=== PATIENT | female | born 1960 | race Caucasian/White ===

== ENCOUNTER 2019-03-07 10:39 | Emergency (ER) | payer MEDICAID, OTHER ==
[2019-03-07] MEDS ORDERED: Naproxen TAB* 250 MG PO ONE ×2 (12:20)
--- NOTE | 2019-03-07 12:48 | ED ---
Lower Extremity - HPI Summary HPI Summary: This patient is a 59-year-old female presenting to the ED with chronic right hip pain. Patient states the hip continues to give out on her frequently and is endorsing pain to the right lateral portion of the hip as well as sciatic pain. She states this been present times several months to possibly years, however but has been worsening. She states she is unable to ambulate without assistance. She does not have a walker, cane or crutches. She states she does not have health insurance and has been unable to follow-up with an orthopedic physician. 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 She has not been taking any over-the- counter medications for relief. Symptoms are described as an aching, worse with ambulation and better with rest. Symptoms are not worse or better a specific time of day and not worse or better with medications. She is not used heat or ice for relief. - History of Current Complaint Chief Complaint: EDHipPelvisInjury Stated Complaint: HIP PAIN Time Seen by Provider: 03/07/19 11:18 Hx Obtained From: Patient Mechanism Of Injury: Other - no known trauma Onset of Pain: Hours Onset/Duration: Hours Severity Initially: Mild Severity Currently: Mild Pain Intensity: 9 Pain Scale Used: 0-10 Numeric Timing: Constant Location: Is Discrete @ - right lateral hip and sciatic area Associated Signs And Symptoms: Negative: Swelling, Redness, Bruising Aggravating Factor(s): Standing, Ambulation Alleviating Factor(s): Rest Able to Bear Weight: No - Risk Factors Gout Risk Factors: Negative DVT Risk Factors: Negative Septic Arthritis Risk Factor: Negative - Allergies/Home Medications Allergies/Adverse Reactions: Allergies Allergy/AdvReac Type Severity Reaction Status Date / Time No Known Allergies Allergy Verified 03/07/19 10:49 PMH/Surg Hx/FS Hx/Imm Hx Previously Healthy: Yes - Immunization History Hx Pertussis Vaccination: No Immunizations Up to Date: Yes Infectious Disease History: No Infectious Disease History: Denies: Traveled Outside the US in Last 30 Days - Social History Occupation: Unemployed Lives: Alone Alcohol Use: None Hx Substance Use: No Substance Use Type: Reports: None Hx Tobacco Use: No Smoking Status (MU): Never Smoked Tobacco Review of Systems Constitutional: Negative Negative: Fever, Chills, Fatigue, Skin Diaphoresis Negative: Epistaxis, Dental Pain Negative: Palpitations, Chest Pain Genitourinary: Negative Positive: no symptoms reported, see HPI Positive: Arthralgia - right lateral hip pain and R sciatic pain - worse with ambulation. Negative: Myalgia Skin: Negative Neurological: Negative All Other Systems Reviewed And Are Negative: Yes Physical Exam Triage Information Reviewed: Yes Vital Signs On Initial Exam: Initial Vitals Temp Pulse Resp BP Pulse Ox 98.1 F 79 18 154/98 96 03/07/19 10:40 03/07/19 10:40 03/07/19 10:40 03/07/19 10:40 03/07/19 10:40 Vital Signs Reviewed: Yes Appearance: Positive: Well-Appearing, Well-Nourished Skin: Positive: Warm, Skin Color Reflects Adequate Perfusion Head/Face: Positive: Normal Head/Face Inspection Eyes: Positive: EOMI, LISA, Conjunctiva Clear Neck: Positive: Supple, No Lymphadenopathy Respiratory/Lung Sounds: Positive: Clear to Auscultation, Breath Sounds Present Cardiovascular: Positive: Pulses are Symmetrical in both Upper and Lower Extremities Musculoskeletal: Positive: Strength/ROM Intact - right lateral hip pain and R sciatic pain - worse with ambulatio Neurological: Positive: Sensory/Motor Intact, Alert, Oriented to Person Place, Time Psychiatric: Positive: Normal, Affect/Mood Appropriate Procedures - Sedation Patient Received Moderate/Deep Sedation with Procedure: No Diagnostics - Vital Signs Vital Signs Temp Pulse Resp BP Pulse Ox 03/07/19 10:40 98.1 F 79 18 154/98 96 - Laboratory Lab Statement: Any lab studies that have been ordered have been reviewed, and results considered in the medical decision making process. Lower Extremity Course/Dx - Course Course Of Treatment: During this course of treatment, the patient is evaluated for right-sided hip pain. She is also endorsing pain to the sciatic area. Patient continues to be ambulatory, however with discomfort. Pain is worse to the right sciatic nerve as well as to the right lateral hip. She states intermittently she will have pain to the groin. Patient is ambulatory on arrival, however she is limping. Flexion and extension without discomfort. Abduction and abduction without discomfort. Hip x-ray obtained which shows no acute findings. Discussed with the patient she will be given a prescription for a walker with a seat and she will follow-up with her orthopedic physician when she obtains health insurance/Medicare. She is given naproxen as prescription and will follow up as soon as possible. - Diagnoses Differential Diagnosis/HQI/PQRI: Positive: Other - chornic hip pain, sciatica Provider Diagnoses: Hip pain Discharge ED - Sign-Out/Discharge Documenting (check all that apply): Patient Departure - Discharge Plan Condition: Stable Disposition: HOME Prescriptions: Naproxen TAB* [Naprosyn 250 mg TAB*] 500 mg PO Q8H PRN #12 tab MDD 3 PRN Reason: Pain - Mild Patient Education Materials: Hip Pain (ED) Referrals: Dori Cruz MD [Medical Doctor] - No Primary Care Phys,NOPCP [Primary Care Provider] - Additional Instructions: Naproxen up to 2-3 times daily as needed for hip pain Continue your physical therapy Please follow-up as soon as possible to orthopedic physician Continue working on your health insurance/Medicare/Medicaid Heat to the area may help - Billing Disposition and Condition Condition: STABLE Disposition: Home - Attestation Statements Provider Attestation: pt seen by midlevel provider independently, based on their assessment, it was not necessary to present the case to me but I was available for consultation. I did not form a physician-patient relationship with the patient. The chart however, has been reviewed. am signing this note strictly in an administrative capacity.
[2019-03-07 13:21] VITALS: BP 129/99
== END 2019-03-07 13:20 | disposition home or self-care (01) ==
LOC: ED 10:39
DX: M25.551 Pain in right hip (principal); M54.31 Sciatica, right side; M16.0 Bilateral primary osteoarthritis of hip
CPT/HCPCS: 99282; A9270-GY

== ENCOUNTER 2019-07-31 07:57 | Inpatient (IN) | payer OTHER ==
[2019-07-31] MEDS ORDERED: Ondansetron INJ* 2 MG/ML VIAL IV ONE (08:17)
[2019-07-31] MEDS ORDERED: NS 0.9% 1000 ML** 1,000 ML IV ONE (08:17)
--- NOTE | 2019-07-31 08:18 | ED ---
Complex/Multi-Sys Presentation - HPI Summary HPI Summary: Pt. is a 59 y.o female who presents to the ER for vomiting and throat discomfort that started last night. Past hx of HTN. Pt. states she started to feel unwell last night and then started to vomiting. Pt. notes after a few episodes of vomiting she started feel like something was stuck in her throat. She notes her voice feels hoarse. Pt. notes her grandson she lives with has strep throat. Pt. otherwise denies cp, sob, diarrhea. Sxs are moderate in severity. no current modifying factors. - History Of Current Complaint Chief Complaint: EDForeignBodyEsophag Time Seen by Provider: 07/31/19 08:03 - Allergies/Home Medications Allergies/Adverse Reactions: Allergies Allergy/AdvReac Type Severity Reaction Status Date / Time Iodinated Contrast Media Allergy Anaphylatic Verified 07/31/19 08:22 Shock shellfish derived Allergy Anaphylatic Verified 07/31/19 08:22 Shock Home Medications: Home Medications Bupropion XL* [Wellbutrin XL *] 150 mg PO DAILY 07/31/19 [History Confirmed ] Gabapentin CAP(*) [Neurontin 100 mg CAP(*)] 300 mg PO BEDTIME 07/31/19 [History Confirmed 07/31/19] Lisinopril TAB* [Prinivil TAB*] 10 mg PO DAILY 07/31/19 [History Confirmed 07/31] Melatonin (NF) 10 mg PO BEDTIME 07/31/19 [History Confirmed 07/31/19] Metoprolol Succinate XL TAB* [Toprol XL TAB*] 50 mg PO DAILY 07/31/19 [History Confirmed 07/31/19] Milk Thistle 150 mg PO DAILY 07/31/19 [History Confirmed 07/31/19] Ondansetron TAB* [Zofran 4 MG Tab*] 4 mg PO Q8H PRN 07/31/19 [History Confirmed 07/31/19] traZODone TAB* [Desyrel TAB*] 100 mg PO BEDTIME 07/31/19 [History Confirmed ] PMH/Surg Hx/FS Hx/Imm Hx Previously Healthy: Yes Infectious Disease History: No Infectious Disease History: Denies: Traveled Outside the US in Last 30 Days - Family History Known Family History: Positive: Non-Contributory - Social History Occupation: Unemployed Lives: With Family Alcohol Use: None Hx Substance Use: No Substance Use Type: Reports: None Hx Tobacco Use: No Smoking Status (MU): Never Smoked Tobacco Review of Systems - ROS Summary Review of Systems Summary: Bupropion XL* [Wellbutrin XL *] 150 mg PO DAILY 07/31/19 [History Confirmed ] Gabapentin CAP(*) [Neurontin 100 mg CAP(*)] 300 mg PO BEDTIME 07/31/19 [History Confirmed 07/31/19] Lisinopril TAB* [Prinivil TAB*] 10 mg PO DAILY 07/31/19 [History Confirmed 07/31] Melatonin (NF) 10 mg PO BEDTIME 07/31/19 [History Confirmed 07/31/19] Metoprolol Succinate XL TAB* [Toprol XL TAB*] 50 mg PO DAILY 07/31/19 [History Confirmed 07/31/19] Milk Thistle 150 mg PO DAILY 07/31/19 [History Confirmed 07/31/19] Ondansetron TAB* [Zofran 4 MG Tab*] 4 mg PO Q8H PRN 07/31/19 [History Confirmed 07/31/19] traZODone TAB* [Desyrel TAB*] 100 mg PO BEDTIME 07/31/19 [History Confirmed ] Positive: Chills Eyes: Negative ENT: Other - Difficulty swallowing. Cardiovascular: Negative Negative: Palpitations, Chest Pain Respiratory: Negative Negative: Shortness Of Breath, Cough Positive: Vomiting, Nausea, Other - constipation. Negative: Abdominal Pain, Diarrhea Genitourinary: Negative Musculoskeletal: Negative Neurological/Mental Status: Negative All Other Systems Reviewed And Are Negative: Yes Physical Exam Triage Information Reviewed: Yes Vital Signs On Initial Exam: Initial Vitals Temp Pulse Resp BP Pulse Ox 98.1 F 103 17 179/134 95 07/31/19 08:00 07/31/19 08:00 07/31/19 08:00 07/31/19 08:00 07/31/19 08:00 Vital Signs Reviewed: Yes Appearance: Positive: Well-Appearing - Pt. sitting up in bed in NAD. Skin: Positive: Warm, Dry Head/Face: Positive: Normal Head/Face Inspection Eyes: Positive: Normal, EOMI, LISA, Conjunctiva Clear ENT: Positive: Pharynx normal, Hoarse voice. Negative: Tonsillar swelling, Tonsillar exudate, Trismus, Muffled voice, Dental tenderness Neck: Positive: Supple, Nontender. Negative: Nuchal Rigidity Respiratory/Lung Sounds: Positive: Clear to Auscultation, Breath Sounds Present. Negative: Rales, Rhonchi, Stridor Cardiovascular: Positive: Normal, RRR Abdomen Description: Positive: Nontender, Soft Neurological: Positive: Normal, CN Intact II-III Psychiatric: Positive: Affect/Mood Appropriate Procedures - Sedation Patient Received Moderate/Deep Sedation with Procedure: No Diagnostics - Vital Signs Vital Signs Temp Pulse Resp BP Pulse Ox 07/31/19 08:00 98.1 F 103 17 179/134 95 - Laboratory Result Diagrams: 07/31/19 08:28 07/31/19 08:28 Lab Statement: Any lab studies that have been ordered have been reviewed, and results considered in the medical decision making process. Complex Multi-Symp Course/Dx Course Of Treatment: Pt. with ongoing N/V. Mildly tachy. Afebrile and nontoxic appearing. No reproducible pain. Pt. given IV fluids and zofran. ECG done at 0825 shows a sinus rhythm of 96bpm, normal axis, no ST elevation or depression. Labs show mild elevation in bilirubin and AST. GB u/s ordered. U/A unremarkable other than small ascites. On re-exam pt. just vomiting a large amount of brown liquid. Will obtain ct for further evaluation. CT per radiology : IMPRESSION: A small amount of ascites is noted. The moderately dilated loops of small. bowel in the left mid abdomen with collapsed loops of distal bowel suggestive of small. bowel obstruction. A small amount of ascites is noted. Etiology cannot be easily. determined due to lack of oral and IV contrast. In addition there appears to be peritoneal studding in the pelvis. This does not appear to. be sequela from diverticulitis. Other etiologies of peritoneal disease should BE. considered. Case discussed with Dr. Lozano who will admit to his service. - Diagnoses Provider Diagnoses: Small bowel obstruction Discharge ED - Sign-Out/Discharge Documenting (check all that apply): Patient Departure - Discharge Plan Condition: Stable Disposition: ADMITTED TO [facility] Referrals: Sindi Calle MD [Primary Care Provider] - - Billing Disposition and Condition Condition: STABLE Disposition: Admitted to [facility] - Attestation Statements Provider Attestation: I was available for consultation for this patient. I did not evaluate the patient or participate in any medical decision making or disposition decisions unless I am specifically named in the chart as having consulted on the patient. If I have consulted on the patient, please see my own ED note on the patient encounter. Nesha Mata MD
--- OUTSIDE RECORDS SUMMARY | 2019-07-31 08:21 | XMS REPORT | Summary of Care ---
:1960 Author Organization [facility] Address [address] [facility] [place] [address] Care Team Providers Name Role Phone Lobitoxochilt Sindi Primary Care Provider Reason for Referral Refer to Department Only (Routine) Status Reason Specialty Diagnoses / Referred By Referred To Procedures Contact Contact Pending Physical Diagnoses Displacement of intervertebral disc of lumbosacral region Parammandeep, Eng Review Therapy [facility] [address] [address] [address] Phone: [place], [place] [phone] Fax: Reason for Visit Reason Comments Post-op Follow-up low back pain Encounter Details Date Type Department Care Team Description 06/12/2019 Office Visit [facility] Neurosurgery [place], Displacement of [address] [place] [address] [address] [facility] lumbosacral region [phone] [place] [address] (Primary Dx) [phone] Allergies Active Allergy Reactions Severity Noted Date Comments Dye Intravenous Radiographic Imaging Anaphylaxis High 04/24/2019 Contrast Sulfa Antibiotics Rash 03/20/2019 documented as of this encounter (statuses as of 06/12/2019) Medications Medication Sig Dispensed Refills Start Date End Date Status Melatonin 1 MG/4ML melatonin 0 06/09/2018 Active Oral Liquid 10 mg Milk Thistle 1000 MG milk thistle 0 12/11/2015 Active Oral Cap 10 milligrams trazodone (DESYREL) Take 2 Tabs by 60 Tab 1 04/06/2019 Active 100 MG Oral Tab mouth EVERY BEDTIME. ondansetron (ZOFRAN) 4 Take 4 mg by mouth 20 Tab 1 04/06/2019 Active MG Oral Tab EVERY EIGHT HOURS NEEDED (nausea). metoprolol (LOPRESSOR) Take 1 Tab by 30 Tab 1 04/06/2019 Active 100 MG Oral Tab mouth DAILY. lisinopril (PRINIVIL, Take 1 Tab by 30 Tab 1 04/06/2019 Active ZESTRIL) 10 MG Oral mouth DAILY. Tab buPROPion XL Take 1 Tab by 30 Tab 0 04/06/2019 Active (WELLBUTRIN XL) 150 MG mouth DAILY. Oral TABLET SR 24 HR 24 hour tablet gabapentin (NEURONTIN) Take 1-3 Caps by 90 Cap 0 04/06/2019 Active 100 MG Oral Cap mouth EVERY BEDTIME. methocarbamol Take 1 Tab by 40 Tab 0 04/27/2019 Active (ROBAXIN) 750 MG Oral mouth THREE TIMES Tab DAILY. documented as of this encounter (statuses as of 06/12/2019) Active Problems Problem Noted Date Displacement of intervertebral disc of lumbosacral region 04/19/2019 Overview: Added automatically from request for surgery [id number] HTN (hypertension) DDD (degenerative disc disease), lumbar documented as of this encounter (statuses as of 06/12/2019) Social History Tobacco Use Types Packs/Day Years Used Date Never Smoker 0 Smokeless Tobacco: Never Used Alcohol Use Drinks/Week oz/Week Comments Yes 2 Shots of liquor 2.0 Alcohol Habits Answer Date Recorded How often do you have a drink containing alcohol? 2-3 times a week 04/06/2019 How many drinks containing alcohol do you have on a Not asked typical day when you are drinking? How often do you have six or more drinks on one Not asked occasion? Sex Assigned at Date Recorded Not on file Job Start Date Occupation Industry Not on file Not on file Not on file Travel History Travel Start Travel End No recent travel history available. documented as of this encounter Last Filed Vital Signs Vital Sign Reading Time Taken Comments Blood Pressure 126/76 06/12/2019 9:17 AM EST Pulse - - Temperature - - Respiratory Rate - - Oxygen Saturation - - Inhaled Oxygen Concentration - - Weight 68 kg (150 lb) 06/12/2019 9:17 AM EST Height 162.6 cm (5' 4") 06/12/2019 9:17 AM EST Body Mass Index 25.75 06/12/2019 9:17 AM EST documented in this encounter Progress Notes Tito Martel MD - 06/12/2019 9:20 AM EST PATIENT: Raina Edward : 1960 DATE OF SERVICE: 06/12/2019 REFERRING PRACTITIONER: Tito Martel PRIMARY CARE PROVIDER: iSndi Calle CHIEF COMPLAINT: Chief Complaint Patient presents with Post-op Follow-up low back pain HISTORY OF PRESENT ILLNESS: Mrs. Edward returns several weeks following microdiscectomy. All of the leg pain has gone. She has a little discomfort near the incision. She wishes to start physical therapy for this. We will release her to work. Past Medical History: Diagnosis Date DDD (degenerative disc disease), lumbar Genital herpes HTN (hypertension) Neuropathy feet Past Surgical History: Procedure Laterality Date CA FOOT/TOES SURGERY PROC UNLISTED CA TOTAL ABDOM HYSTERECTOMY endometrial dysplasia Family History Problem Relation Age of Onset Breast Cancer Mother 40 Heart Father Diabetes Sister Colon Cancer Brother Cancer Daughter thyroid No Known Problems Son No Known Problems Brother No Known Problems Daughter Breast Cancer Maternal Grandmother Social History Socioeconomic History Marital status: Spouse name: Not on file Number of children: Not on file Years of education: Not on file Highest education level: Not on file Occupational History Not on file Social Needs Financial resource strain: Not on file Food insecurity Worry: Not on file Inability: Not on file Transportation needs Medical: Not on file Non-medical: Not on file Tobacco Use Smoking status: Never Smoker Smokeless tobacco: Never Used Substance and Sexual Activity Alcohol use: Yes Alcohol/week: 2.0 standard drinks Types: 2 Shots of liquor per week Frequency: 2-3 times a week Drug use: Never Sexual activity: Not Currently Lifestyle Physical activity Days per week: Not on file Minutes per session: Not on file Stress: Not on file Relationships Social connections Talks on phone: Not on file Gets together: Not on file Attends christian service: Not on file Active member of club or organization: Not on file Attends meetings of clubs or organizations: Not on file Relationship status: Not on file Intimate partner violence Fear of current or ex partner: Not on file Emotionally abused: Not on file Physically abused: Not on file Forced sexual activity: Not on file Other Topics Concern Not on file Social History Narrative Not on file Current Outpatient Medications Medication buPROPion XL (WELLBUTRIN XL) 150 MG Oral TABLET SR 24 HR 24 hour tablet gabapentin (NEURONTIN) 100 MG Oral Cap lisinopril (PRINIVIL, ZESTRIL) 10 MG Oral Tab Melatonin 1 MG/4ML Oral Liquid methocarbamol (ROBAXIN) 750 MG Oral Tab metoprolol (LOPRESSOR) 100 MG Oral Tab Milk Thistle 1000 MG Oral Cap ondansetron (ZOFRAN) 4 MG Oral Tab trazodone (DESYREL) 100 MG Oral Tab Allergies Allergen Reactions Dye Intravenous Radiographic Imaging Contrast Anaphylaxis Sulfa Antibiotics Rash REVIEW OF SYSTEMS: BP 126/76 | Ht 5' 4" (1.626 m) | Wt 150 lb (68 kg) | BMI 25.75 kg/m Body mass index is 25.75kg/m. Psychological ROS: negative Ophthalmic ROS: negative ENT ROS: negative Hematological and Lymphatic ROS: negative Endocrine ROS: negative Respiratory ROS: no cough, shortness of breath, or wheezing Cardiovascular ROS: no chest pain or dyspnea on exertion Gastrointestinal ROS: no abdominal pain, change in bowel habits, or black or bloody stools Genito-Urinary ROS: negative Musculoskeletal ROS: negative Neurological ROS: negative IMPRESSION / PLAN: ICD-9-CM ICD-10-CM 1. Displacement of intervertebral disc of lumbosacral region 722.10 M51.27 REFER TO PHYSICAL THERAPY/ REHAB Author: Tito Martel MD 06/12/2019 09:23 documented in this encounter Plan of Treatment Date Type Specialty Care Team Description 07/03/2019 Ancillary Procedure Radiology 07/03/2019 Ancillary Procedure Radiology Name Type Priority Associated Diagnoses Order Schedule REFER TO PHYSICAL Referral Routine Displacement of 99 Occurrences THERAPY / REHAB intervertebral disc of starting 06/12/2019 lumbosacral region until 06/12/2020 Health Maintenance Due Date Last Done Comments DTaP/Tdap/Td Vaccines (1 - 01/31/1972 Tdap) HIV SCREENING 01/31/1976 ZOSTER IMMUNIZATION SERIES 2011 (1 of 2) INFLUENZA VACCINE (#1) 2019 DEPRESSION SCREENING 04/06/2020 04/06/2019 LIPID DISORDER SCREENING 04/12/2020 04/12/2019 MAMMOGRAM (SCREENING) 04/26/2020 04/26/2019, 11/18/2017, 10/22/2016, Additional history exists DIABETES SCREENING 05/17/2020 05/17/2019, 04/24/2019, 04/12/2019 Colonoscopy 05/19/2023 05/19/2018 HEPATITIS C SCREENING Completed 05/17/2019 HEPATITIS A IMMUNIZATION Aged Out No longer eligible SERIES based on patient's age to complete this topic HPV IMMUNIZATION SERIES Aged Out No longer eligible based on patient's age to complete this topic MENINGOCOCCAL VACCINE IMM Aged Out No longer eligible based on patient's age to complete this topic PNEUMOCOCCAL 0-64 YRS Aged Out No longer eligible based on patient's age to complete this topic documented as of this encounter Goals Goal Patient Goal Associated Recent Patient-Stated? Author Type Problems Progress Blood Pressure Blood Pressure 126/76 No Luc, < 140/90 (06/12/2019 Sindi, 9:17 AM EST) Note: This is an individualized treatment (blood pressure) goal for Raina Edward: Displayed above (on the left) is your goal for blood pressure control. Your most recent blood pressure is also shown above, on the right. You should try to achieve blood pressures that are lower than your goal listed above (on the left). Take all prescribed medications as Self-management Sindi Dao MD directed Note: This is an individualized self-management goal for Raina Edward: Please take all prescribed medications as directed. 1. Do not skip doses. If you cannot afford your medications, talk with your doctor. 2. Use a pill reminder system such as a pill box if needed. Your pharmacist can help you with this. 3. Contact your Pharmacy 5 days before your medication runs out. If you cannot take your medications for any reasons, talk with your doctor. 4. Please bring all of your medication bottles and inhalers (or a list of all your medications/inhalers) with you to every visit. Potential barriers to meeting all of your care plan goals will continue to be addressed on an ongoing basis. documented as of this encounter Results Not on filedocumented in this encounter Visit Diagnoses Diagnosis Displacement of intervertebral disc of lumbosacral region documented in this encounter Insurance Payer Benefit Plan / Subscriber ID Effective Dates Phone Address Type Group [facility]AN [facility] xxxxxxxxxxx 2019-Present Yan documented as of this encounter
--- OUTSIDE RECORDS SUMMARY | 2019-07-31 08:21 | XMS REPORT | Summary of Care ---
:1960 Author Organization [facility] Address [address] [address] Care Team Providers Name Role Phone CarlosgeeSindi Primary Care Provider Reason for Visit Reason Comments Low Back Pain Encounter Details Date Type Department Care Team Description 07/07/2019 Office Visit [facility] Shelby Tejeda, PT [facility] [place] Physical 10 [facility] intervertebral disc of Therapy [address] lumb[address]ral region [address] [place] [address] (Primary Dx) [phone] [place] [address] Allergies Active Allergy Reactions Severity Noted Date Comments Dye Intravenous Radiographic Imaging Anaphylaxis High 04/24/2019 Contrast Sulfa Antibiotics Rash 03/20/2019 documented as of this encounter (statuses as of 07/07/2019) Medications Medication Sig Dispensed Refills Start Date [...] as of this encounter (statuses as of 07/07/2019) Active Problems Problem Noted Date Displacement of intervertebral disc of lumbosacral region 04/19/2019 Overview: Added automatically from request for surgery [id number] HTN (hypertension) DDD (degenerative disc disease), lumbar documented as of this encounter (statuses as of 07/07/2019) Social History Tobacco Use Types Packs/Day Years [...] of this encounter Last Filed Vital Signs Not on filedocumented in this encounter Progress Notes Shelby Tejeda, PT - 07/07/2019 10:30 AM EST [facility] Treatment Note Outpatient Physical Therapy [facility] PHYSICAL THERAPY [address] [place] [id number] Treatment Number: 2 Referring Physician: Tito Martel Primary Diagnosis: ICD-9-CM ICD-10-CM 1. Displacement of intervertebral disc of lumbosacral region 722.10 M51.27 Plan of Care Expiration Date: Time In: 1025 Time Out: 1055 Total Session Minutes: 30 Pain at Start of Care: 06/16 Pain at End of Care: 06/16 Subjective Comments: Patient denies symptoms in the legs. Right side low back is a little sore. Does not feel like she needs anymoe exercises because these keep her busy. Interventions: Therapeutic Exercises (60730) Number of Exercises?: 7 Total Minutes (all Therapeutic Exercise): 25 Exercise #1 Exercise Name: LTR Reason for Exercise: Joint Mobility Location/Body Area: Lumbar Spine Sets/Reps: 8 Exercise #2 Exercise Name: Daren stretch Reason for Exercise: Flexibility Location/Body Area: Hip;Lumbar Spine Sets/Reps: 3 Exercise #3 Exercise Name: piriformis stretch Reason for Exercise: Flexibility Location/Body Area: Lumbar Spine Sets/Reps: 3x30 seconds Exercise #4 Exercise Name: bridge Reason for Exercise: Strengthening Location/Body Area: Lumbar Spine Sets/Reps: 8 Exercise #5 Exercise Name: slr Reason for Exercise: Strengthening Location/Body Area: Lumbar Spine Sets/Reps: 10 Exercise #7 Exercise Name: gastroc stretch Reason for Exercise: Flexibility Location/Body Area: Lumbar Spine Sets/Reps: 3x30 seconds Assessment: Patient demonstrates good recall of HEP but requires some cueing for mechanics. Patient also reports ongoing difficulty in prolonged sitting. Skilled Physical Therapy services are required to address ongoing functional and objective limitations/impairments including decreased LE flexibility, decreased core strength. Plan for Next Visit: Patient is going to trial HEP only and follow up if any decline in status Total UNTIMED Code Treatment Minutes: Total TIMED Code Treatment Minutes: 25 Total Treatment Minutes: 25 Re- Eval: Insurance/Visits: Author: Shelby Tejeda, PT 07/07/2019 10:49 documented in this encounter Plan of Treatment Date Type Specialty Care Team Description 07/17/2019 Office Visit Neurosurgery iTto Martel MD [address] [address] Health Maintenance Due Date Last Done Comments [...] Take all prescribed medications as Self-management Sindi aDo MD directed Note: This is an individualized [...] ID Effective Dates Phone Address Type Group [facility] Yan documented as of this encounter
--- OUTSIDE RECORDS SUMMARY | 2019-07-31 08:21 | XMS REPORT | Summary of Care ---
:1960 Author Organization [facility] Address [address] [address] Care Team Providers Name Role Phone CarlosgeeSindi Primary Care Provider Reason for Visit Reason Comments Low Back Pain Encounter Details Date Type Department Care Team Description 06/23/2019 Office Visit [facility] Shelby Tejeda, PT [facility] [place] Physical 10 [facility] intervertebral disc of Therapy [address] lumb[address]ral region [address] [place] [address] (Primary Dx) [address] [phone] [place] [address] Allergies Active Allergy Reactions Severity Noted Date Comments Dye Intravenous Radiographic Imaging Anaphylaxis High 04/24/2019 Contrast Sulfa Antibiotics Rash 03/20/2019 documented as of this encounter (statuses as of 06/23/2019) Medications Medication Sig Dispensed Refills Start Date [...] as of this encounter (statuses as of 06/23/2019) Active Problems Problem Noted Date Displacement of intervertebral disc of lumbosacral region 04/19/2019 Overview: Added automatically from request for surgery [id number] HTN (hypertension) DDD (degenerative disc disease), lumbar documented as of this encounter (statuses as of 06/23/2019) Social History Tobacco Use Types Packs/Day Years [...] encounter Progress Notes Shelby Tejeda, PT - 06/23/2019 1:00 PM EST [facility] Initial Evaluation Outpatient Physical Therapy [facility] PHYSICAL THERAPY [address] [place] [phone] Patient: Raina Edward : 1960 Date of Service: 06/23/2019 Referring Physician: Tito Martel Primary Diagnosis: ICD-9-CM ICD-10-CM 1. Displacement of intervertebral disc of lumbosacral region 722.10 M51.27 Time In: 1230 Time Out: 0130 Subjective: She is a 59-y.o.-year-old female who presents for outpatient physical therapy with a chief complaint of 04/27/19. Pain in the right side low back. Zapping pain intermittently, aches at rest. Right LE seems completely resolved. Has been using the massager at home which helps. Prior Functional Status: pain in low back and right leg with prologned positions, walking, bending Current Functional Status: independent with pain during twisting and intermittently in prolonged positions Abuse/Neglect Screening Are you being threatened or hurt by anyone? : No FOTO Data FOTO Intake Completed: Yes Intake FS Score: 30 Predicted FS Score: 46 Objective: Past Medical History: Diagnosis Date DDD (degenerative disc disease), lumbar Genital herpes HTN (hypertension) Neuropathy feet Past Surgical History: Procedure Laterality Date MS FOOT/TOES SURGERY PROC UNLISTED MS TOTAL ABDOM HYSTERECTOMY endometrial dysplasia Current Outpatient Medications: buPROPion XL (WELLBUTRIN XL) 150 MG Oral TABLET SR 24 HR 24 hour tablet , Take 1 Tab by mouthDAILY., Disp: 30 Tab, Rfl: 0 gabapentin (NEURONTIN) 100 MG Oral Cap, Take 1-3 Caps by mouth EVERY BEDTIME., Disp: 90 Cap,Rfl: 0 lisinopril (PRINIVIL, ZESTRIL) 10 MG Oral Tab, Take 1 Tab by mouth DAILY., Disp: 30 Tab, Rfl: 1 Melatonin 1 MG/4ML Oral Liquid, melatonin 10 mg, Disp: , Rfl: methocarbamol (ROBAXIN) 750 MG Oral Tab, Take 1 Tab by mouth THREE TIMES DAILY., Disp: 40 Tab, Rfl: 0 metoprolol (LOPRESSOR) 100 MG Oral Tab, Take 1 Tab by mouth DAILY., Disp : 30 Tab, Rfl: 1 Milk Thistle 1000 MG Oral Cap, milk thistle 10 milligrams, Disp: , Rfl: ondansetron (ZOFRAN) 4 MG Oral Tab, Take 4 mg by mouth EVERY EIGHT HOURS NEEDED (nausea)., Disp: 20 Tab, Rfl: 1 trazodone (DESYREL) 100 MG Oral Tab, Take 2 Tabs by mouth EVERY BEDTIME. , Disp: 60 Tab, Rfl:1 Allergies Allergen Reactions Dye Intravenous Radiographic Imaging Contrast Anaphylaxis Sulfa Antibiotics Rash Posture: Flattended lumbar lordosis Pain at Baseline: 1 Lumbar AROM: Flexion: Full without pain Extension: Full without pain Right lateral glide: Increases pain, combines with flexion Left lateral glide: WNL, combines with flexion Rotation:75% bilaterally without reproduction of pain Neurological Review: Lower Extremity Dermatomes: intact Lower Extremity Myotomes: intact Lower Extremity Reflexes: intact Hip flexor strength: 4-/5 on right, 4+/5 legt Right hip ER increases LBP Special Tests: Seated Slump: negative Straight Leg Raise: negative Joint Mobility Assessment: not indicated post operatively Plan of Care Plan of Care Start Date: 06/23/19 Plan of Care Expiration Date: 09/22/19 Prior Function Comment: pain in low back and right leg with prologned positions , walking, bending Current Function Comment: independent with pain during twisting and intermittently in prolonged positions Rehabilitative Prognosis: Good Planned Intervention(s): PT Eval Low Complexity (94947);Therapeutic Exercise ( Timed) (04406);Ultrasound (Timed) (41207);Manual Therapy (Timed) (12099);Moist Hot Pack (65572);Cold Pack (01438) Frequency of Treatments: 1 time weekly Duration of Treatments: 3 months History Components: Moderate (1-2 personal factors and/or comorbidities) Examination of Body Systems/Components: Low (Addressing 1-2 elements) Clinical Presentation: Stable - unchanging or predictable (Low) Clinical Decision Making (complexity): Low Treatment Number: 1 Total Time of Evaluation: 25 Outcome Tools Used: FOTO Assessment: Patient presents s/p lumbar microdiscectomy on 04/27/19. Displays right side low back pain mostly at the paraspinals. Denies symptoms in the LE. Displays painful right side lateral flexionand combines rotation and lateral flexion with forward flexion. Weakness in the right hip flexors, lateral hip and core muscles with decreased hip flexor length. Would benefit from therapy to improve ROM, flexibility, strength, posture and tolerance for all ADL's. Was Physical Therapy treatment performed at this visit? Yes: Interventions: FOTO Data FOTO Intake Completed: Yes Intake FS Score: 30 Predicted FS Score: 46 Therapeutic Exercises (22752) Patient Education/Home Exercise Program: HEP given and performed Number of Exercises?: 6 Total Minutes (all Therapeutic Exercise): 25 Exercise #1 Exercise Name: RAJNI Reason for Exercise: Joint Mobility Location/Body Area: [...] Location/Body Area: Lumbar Spine Sets/Reps: 10 Exercise #6 Exercise Name: clams Reason for Exercise: Strengthening Location/Body Area: Lumbar Spine Sets/Reps: 10 Resistance: blue Plan for Next Visit: Continue per POC. Add bug, quadruped bird dog, prone extension Evaluation Complexity Assessment: History Components: Moderate (1-2 personal factors and/or comorbidities) Examination of Body Systems/Components: Low (Addressing 1-2 elements) Clinical Presentation: Stable - unchanging or predictable (Low) Clinical Decision Making (complexity): Low Treatment Number: 1 Total Time of Evaluation: 25 Total Number of Timed Code Treatment Minutes: 30 Author: Shelby Tejeda, PT 06/23/2019 13:16 documented in this encounter Plan of Treatment Date Type Specialty Care Team Description 06/30/2019 Office Visit Physical Therapy Shelby Tejeda, PT [address] [place] [address] [place] [address] [phone] 07/03/2019 Ancillary Procedure Radiology 07/03/2019 Ancillary Procedure Radiology 07/07/2019 Office Visit Physical Therapy Shelby Tejeda, PT [address] [place] [address] [place] [address] [phone] 07/17/2019 Office Visit Neurosurgery Tito Martel MD [address] [address] Health [...] Effective Dates Phone Address Type Group YAN [facility] [place] xxxxxxxxxxx 2019-Present Yan documented as of this encounter
[2019-07-31 08:44] LABS: Hematocrit 44 % (35-47); Hemoglobin 15.2 g/dL (12.0-16.0); Mean Corpuscular HGB Conc 35 g/dL (31-36); Mean Corpuscular Hemoglobin 36 pg (27-31); Mean Corpuscular Volume 103 fL (80-97); Red Blood Count 4.23 10^6 /uL (3.70-4.87); Red Cell Distribution Width 15 % (10-15); White Blood Count 4.8 10^3/uL (3.5-10.8)
[2019-07-31 09:00] LABS: Albumin 4.4 g/dL (3.2-5.2); Albumin/Globulin Ratio 1.6 (1-3); BUN/Creatinine Ratio 13.3 (8-20); C Reactive Protein 9.6 mg/L (<8.01); Calcium 9.7 mg/dL (8.6-10.3); EGFR Non-African American 79.4 (>60); Globulin 2.7 g/dL (2-4); Potassium 3.8 mmol/L (3.5-5.0); Total Bilirubin 1.4 mg/dL (0.2-1.0); Total Protein 7.1 g/dL (6.4-8.9)
[2019-07-31 09:07] LABS: Influenza A Molecular Negative (Negative); Influenza B Molecular Negative (Negative); Rapid Strep Molecular Negative (Negative)
[2019-07-31 09:07] LABS: ABS Lymphocytes 0.7 10^3/ul (1.0-4.8); ABS Monocytes 0.5 10^3/ul (0-0.8); ABS Neutrophils 3.6 10^3/ul (1.5-7.7); Eosinophil % 0.4 %; Lymphocyte % 13.8 %; Nucleated Red Blood Cells % 0.2; Platelet Count 99 10^3/uL (150-450)
[2019-07-31] MEDS ORDERED: Ondansetron ODT TAB* 4 MG PO ONE (10:55)
[2019-07-31] MEDS ORDERED: Ondansetron INJ* 2 MG/ML VIAL IV PRN ×2 (13:07→20:05)
[2019-07-31] MEDS ORDERED: Metoprolol Tartrate IV* 1 MG/ML 5 ML VIAL IV ONE (13:57)
[2019-07-31] MEDS: Metoprolol Succinate XL TAB* 50 MG PO SCH (14:10)
[2019-07-31 14:37] LABS: Magnesium 1.3 mg/dL (1.9-2.7)
[2019-07-31] MEDS ORDERED: Buffered Lidocaine 1% SYRIN* 1 ML/SYRINGE INTRADERM ONE (14:52)
[2019-07-31] MEDS ORDERED: Dexamethasone IV* 4 MG/ML 1 ML (4 MG) IV SLOW PU ONE (14:52)
[2019-07-31] MEDS ORDERED: Famotidine IV* 10 MG/ML 2 ML (20 mg) IV ONE (14:52)
[2019-07-31] MEDS ORDERED: DiMENhydriNATE IV* 50 MG/ML VIAL IV PUSH ONE (14:52)
[2019-07-31 14:53] LABS: Folate 6.4 ng/mL (>3.99)
[2019-07-31] MEDS ORDERED: Lactated Ringers 1000 ML Bag* 1,000 ML IV SCH (15:00)
--- NOTE | 2019-07-31 15:06 | HP ---
AMENDED REPORT NOW INCLUDES DESIGNATED COSIGNER - ESIGNED BEFORE ADJUSTMENTS ADMISSION HISTORY AND PHYSICAL: DATE OF ADMISSION/SURGERY: 07/31/19 This is a priority dictation as the patient will be going to the operating room later today. This patient was seen on 07/31/19, in the emergency department of [facility]. ATTENDING SURGEON: Dr. Timoteo Lozano.* (DICTATED BY JULIO AUGUSTE, JOSUE) CHIEF COMPLAINT: Vomiting. HISTORY OF PRESENT ILLNESS: The patient is a 59-year-old female who moved to the [facility] from [place] about 6 months ago. She states that she has had several months of episodes of vomiting that happened spontaneously and typically pass within a few hours. Last night, she states that she was up all night vomiting and had associated throat discomfort and felt like something was stuck in her throat. She has a history of chronic constipation. She took a suppository yesterday and around midnight had a very small and hard stool. She has had a 30-pound weight loss over the past year. She describes her appetite as poor, and she eats 1 meal a day, very small portions and has a strong gag reflex. She consistently feels like she has a lump in her throat. She reports a sensation of fullness in the infraumbilical region that she describes as "something feels stuck inside." She denies any sharp or crampy abdominal pain, and denies any dysuria. She had a CAT scan of the abdomen and pelvis that was done without oral or IV contrast as the patient has an allergy to CONTRAST DYE; the impression was a small amount of ascites was noted; the moderately dilated loops of small bowel in the left mid abdomen with collapsed loops of distal bowel are suggestive of small bowel obstruction. In addition, there appears to be peritoneal studding in the pelvis. Her white blood cell count was normal at 4.8. Her platelets were low at 99. Dr. Lozano saw the patient in the emergency department and discussed with the patient the possible need for exploratory laparoscopy. PAST MEDICAL HISTORY: Hypertension and she is followed at the [facility]; she has had 2 previous hospitalizations in [place], one for what she described as sepsis with possible respiratory origin and another admission for acute kidney failure thought to be related to dehydration and she was also treated at that time for C. diff. PAST SURGICAL HISTORY: Vaginal total abdominal hysterectomy for uterine dysplasia in 1999 in [place]; back surgery for herniated disk April 2019 in [place], [place]; multiple foot surgeries and tonsillectomy. MEDICATIONS: 1. Bupropion XL 150 mg p.o. daily. 2. Gabapentin 300 mg p.o. at bedtime. 3. Lisinopril 10 mg p.o. daily. 4. Melatonin 10 mg p.o. at bedtime. 5. Metoprolol XL 50 mg p.o. daily. 6. Milk thistle 150 mg p.o. daily. 7. Ondansetron 4 mg p.o. q.8 hours p.r.n. 8. Trazodone 100 mg p.o. daily at bedtime. She did not take any of her medications today, but she took all of them yesterday. ALLERGIES: IODINATED CONTRAST MEDIA causes anaphylactic shock, SHELLFISH also causes anaphylactic shock. FAMILY HISTORY: Mother at age 40 with a history of breast cancer with possible metastasis. Father at age 47 with a history of heart disease and was in an airplane crash. Brother at age 59 with a history of colon cancer. Sister in her early 50s with a history of diabetes and heart disease. No known bleeding tendencies, clotting disorders, or anesthesia complications in the family. SOCIAL HISTORY: She lives with her daughter, son-in-law and 10-year-old grandson. She moved to [place] from [place] about 6 months ago. She is a nonsmoker. She denies the use of alcohol or other substances, and she walks for exercise. REVIEW OF SYSTEMS: General: She denies any previous anesthesia complications. She denies any history of deep vein thrombosis or pulmonary embolism. She received blood transfusion after childbirth in 1978. Endocrine: No known diabetes or thyroid disease. Respiratory: Possible admission in the past for sepsis of respiratory origin. No definite history of pneumonia, asthma, or bronchitis. She is a nonsmoker. Cardiovascular: She is treated for hypertension. She denies any anginal chest pain or palpitations. Gastrointestinal: As described in the history of present illness, and she did have a colonoscopy in [place] about 1 year ago that she describes as within normal limits other than diverticulosis; no history of stomach ulcers or colon polyps. Genitourinary: No dysuria. No kidney stones. Musculoskeletal: Normal strength and tone. Neurologic: No headache or blurred vision. She reports mild neuropathy in the right foot, status post foot surgery. PHYSICAL EXAMINATION GENERAL SURVEY: The patient is a 59-year-old female, well developed, well nourished, in no acute distress. VITAL SIGNS: Height 5 feet 4 inches, weight 150 pounds, body mass index 25.7. Blood pressure has ranged from 180/110 to 145/99, pulse has been in range from 88 to 102, respiratory rate 18, temperature 98.1. HEENT: Benign. NECK: Supple. No cervical lymphadenopathy. BACK: No CVA tenderness. LUNGS: Breath sounds bilaterally clear and equal. HEART: Regular rate and rhythm. No murmurs or rubs appreciated. ABDOMEN: Active bowel sounds. Soft and nondistended. There is a fullness in the infraumbilical region on palpation that is nontender. There is mild tenderness in the right lower quadrant. No guarding. No obvious masses or organomegaly. PELVIC: Exam is not indicated. RECTAL: Exam is not indicated. EXTREMITIES: Warm without edema or skin ulceration. Calves are nontender. NEUROLOGIC: Alert and oriented x3, calm and cooperative. SKIN: Warm, dry, intact. IMPRESSION: Small bowel obstruction. PLAN: As per Dr. Lozano, after medical clearance by the hospitalist service, most likely the patient will be taken to the operating room today for exploratory laparoscopy; she is currently n.p.o. and receiving IV fluids and antiemetics as needed. Dr. Lozano also saw the patient in the emergency department and discussed the rationale for the exploratory laparoscopy. The patient is in agreement with the plan. TIME SPENT: Total time spent 60 minutes with greater than 50% in [id number] history taking, physical examination, and coordination of care. JULIO AUGUSTE NP [id number]/[facility] #: [id number] ELIZA
[2019-07-31] MEDS ORDERED: Magnesium Sulfate 2 GM IV* 2 GM/50 ML BAG IVPB ONE (16:00)
--- NOTE | 2019-07-31 16:37 | CONS ---
CC: Dr. Calle; Dr. Maribel Weir; Dr. Timoteo Lozano * CONSULTATION REPORT: DATE OF CONSULT: 07/31/19 PRIMARY CARE PROVIDER: Dr. Calle. MY ATTENDING WHILE IN THE HOSPITAL: Dr. Maribel Weir. CONSULTING SURGEON: Dr. Timoteo Lozano. CHIEF COMPLAINT: Abdominal pain, nausea, and vomiting x2 days. HISTORY OF PRESENT ILLNESS: Ms. Edward is a 59-year-old female with past medical history significant for hypertension, insomnia, and history of alcohol abuse, who presents to the emergency department after being sick for 2 days with abdominal pain, nausea and vomiting, not really being able to tolerate anything by mouth. The patient has had several episodes like this over the last year, but has never gone for medical attention for any of them as they usually pass relatively quickly. The patient has not had any recent illnesses, no recent changes to her medications. The patient has never had an episode that lasted this long before. The patient has no blood in her vomit. The patient is not passing flatus or has not had a bowel movement since this began. The patient is not able to take her medications including her blood pressure medications. The patient has been having significant weight loss. One year ago , she weighed 180 pounds. She then went down all the way to the 145 pounds due to lack of appetite and then rebounded to 150. The patient's only intraabdominal surgery is a hysterectomy, which was done transvaginally for hyperplasia within her uterus. The patient does have a strong family history of cancer. The patient denies shortness of breath with exertion, chest pain, or any other pain. In the emergency department, the patient had a gallbladder ultrasound which was unremarkable and abdomen and pelvis CT which showed a concern for a small bowel obstruction with studding in the pelvis. The patient is planned for the operating room later today and due to concerns for hypertension, we were asked to evaluate this patient for co-management and comorbid medical conditions. PAST MEDICAL HISTORY: Hypertension, anxiety, insomnia, lumbar spinal pathology , history of alcohol abuse. PAST SURGICAL HISTORY: Hysterectomy, diskectomy, multiple foot surgeries due to bunions. MEDICATIONS: 1. Gabapentin 300 mg p.o. at bedtime. 2. Trazodone 100 mg p.o. at bedtime. 3. Metoprolol succinate 50 mg p.o. daily. 4. Lisinopril 10 mg p.o. daily. 5. Zofran 4 mg p.o. q.8 hours as needed. 6. Milk thistle 150 mg p.o. daily. 7. Melatonin 10 mg p.o. at bedtime. 8. Bupropion 150 mg p.o. daily. ALLERGIES: IODINATED CONTRAST MEDIA, SHELLFISH. FAMILY HISTORY: The patient's mother at 40 of breast cancer. The patient' s brother at 57 with colon cancer. The patient's father of unknown causes. The patient's sister of complications of diabetes. SOCIAL HISTORY: The patient denies ever smoking. The patient used to abuse alcohol as of last year drinking 5 drinks nightly. She has been cutting down significantly and most recently and has now been drinking just 1-1/2 alcoholic beverage daily. The patient denies illicit drug use. The patient used to live in [place], [place]. The patient recently got a job at [employer] but is not working there yet. The patient lives with her standard family including her daughter, son-in-law and granddaughter. Her daughter recently went to [place], which is why she moved to [place]. The patient is and had 3 total children. The patient's surrogate decision maker will be her daughter, Amparo Guo. REVIEW OF SYSTEMS: A 10-point review of systems was reviewed and is negative except as above in the HPI. PHYSICAL EXAM: General: The patient is a 59-year-old female who appears stated age and sitting in the bed, in no acute distress. Vital Signs: At the time of evaluation, temperature 98.1, pulse rate 100, respiratory rate 20, oxygen saturation 96% on room air. HEENT: Head: Normocephalic, atraumatic. Sclerae anicteric. No conjunctival injection. Nasal mucosa moist. Oral mucosa moist. No pharyngeal erythema, discharge, or exudate. Neck: Supple, nontender. No lymphadenopathy. No carotid bruits auscultated. No JVD. Cardiac: Regular rate and rhythm. No clicks, murmurs, gallops, or rubs. Pulses are 2+ in the dorsalis pedis, posterior tibialis, and radial areas. Respiratory: Clear to auscultation bilaterally. No wheezes, rales, or rhonchi. Good air exchange bilaterally. Abdomen: Tender to palpation in the right upper quadrant. No rebound or guarding. Hypoactive bowel sounds present throughout. No hepatosplenomegaly. No abdominal bruits auscultated. Genitourinary: No suprapubic or CVA tenderness. Skin: Clean, dry and intact. No rash. Neuro: Cranial nerves II through XII intact. No focal deficits. Alert and oriented x3. Psychiatric: Pleasant and cooperative. DIAGNOSTIC STUDIES/LAB DATA: Laboratory data: White blood cell count is 4.8, hemoglobin 15.2, platelet count 99. Sodium 137, potassium 3, chloride 99, carbon dioxide 25, anion gap 13, BUN 10, creatinine 0.75, glucose 131, calcium 9.7. Bilirubin 1.4, AST 42, ALT 26, alkaline phosphatase 62. CRP 9.6, protein 7.1, albumin 4.4, globulin 2.7, lipase 22. Influenza A and B negative. Group A Strep negative. Studies: Chest x-ray read as no acute cardiopulmonary disease. EKG shows normal sinus rhythm, rate of 96, QTc of 459, normal R-wave progression. Normal axis. No hypertrophy enlargement. Gallbladder ultrasound read as negative for gallbladder pathology. Unremarkable liver. Small volume of ascites. Abdomen and pelvis CT read as small ascites without mildly dilated loops of small bowel in the left mid abdomen and collapse of distal bowel suggests small bowel obstruction, small amount of ascites is noted. Etiology cannot be determined with lack of IV contrast. In addition, there appears to be a peritoneal studding in the pelvis. There does not appear to be a sequelae from diverticulitis. Other etiologies of peritoneal disease should be considered. ASSESSMENT AND PLAN: Impression: Mrs. Edward is a 59-year-old female with past medical history significant for hypertension, insomnia and alcohol abuse, who presents to the emergency department with 3 days of nausea, vomiting and abdominal pain, found to have a small bowel obstruction, who is currently admitted to the hospital under the service of Dr. Timoteo Lozano for exploratory laparoscopy, possible intervention on small bowel obstruction and desiccation of peritoneal studding. 1. Small bowel obstruction, peritoneal studding. His small bowel obstruction will be managed surgically at this point. If transition point is able to be found, this will be in conjunction with exploratory laparoscopy to investigate further peritoneal studding, any adhesions or other possible diagnostic clues for the cause of her small bowel obstruction. The patient has a history of uterine hyperplasia. It is possible small bowel obstruction is due to metastatic disease, which will be addressed based on pathology results. The patient will be n.p.o. The patient has no signs of chest pain. The patient's renal function is fine. She has minimal chronic medical diseases. The patient has no signs of acute myocardial infarction or heart failure. The patient's RCRI is 0 indicating a 3.9% chance of MACE at 30 days. The patient's EKG is nonischemic. The patient is medically optimized to undergo surgery without any further cardiac testing. 2. Hypertension. The patient is currently hypertensive likely from rebound from above discontinuation of her metoprolol succinate. The patient's metoprolol succinate will be reintroduced at this time and she was given one time dose of metoprolol tartrate IV while she is awaiting surgery, further treatment for her blood pressure will depend on her response to this. The patient's lisinopril will be held perioperatively. 3. Anxiety. Continue the patient's bupropion, trazodone and gabapentin. 4. Insomnia. Continue the patient's melatonin and trazodone. 5. History of alcohol abuse. The patient on her lab work has low platelet count and elevated MCV, elevated bilirubin and elevated ALT. The patient monitored closely perioperatively for signs of alcohol withdrawal, though she states she only drinks half a alcoholic beverage daily and INR has been added on at this point to assess for synthetic liver dysfunction. B12, folate and magnesium will also be added on as the patient also has weight loss and may be malnourished. Note this investigation should postpone her surgery. 6. FEN: The patient will be n.p.o. and after that have a regular unrestricted diet. The patient had received 1 L of fluid and has been getting fluids at 150 ml an hour, which is appropriate. 7. Disposition: Per Orthopedics. 8. Code status: The patient will be a full code. 9. DVT prophylaxis: This will be started likely with Lovenox subcu after the patient's surgery. TIME SPENT: Approximately 60 minutes was spent on this consultation, 30 of which was spent [id number] with the patient obtaining history and physical and discussing treatment plan. This plan has been discussed with my attending, Dr. Maribel Weir, and she is in agreement. SANJUANA HAMILTON [id number]/[facility] #: [id number] ELIZA
[2019-07-31] MEDS ORDERED: Bupivacaine 0.5%* 50 ML MDV VIAL ONE (19:20)
[2019-07-31] MEDS ORDERED: ceFAZolin 2 GM in NS PREMIX(*) 2 GM/100 ML BAG IVPB ONE (19:25)
[2019-07-31] MEDS ORDERED: Rocuronium* 10 MG/ML VIAL ONE (19:44)
[2019-07-31] MEDS ORDERED: HYDROmorphone INJ1* 1 MG/ML SYRINGE ONE ×2 (19:44→21:04)
[2019-07-31] MEDS ORDERED: Propofol* 10 MG/ML 20 ML BTL ONE (19:44)
[2019-07-31] MEDS ORDERED: Metoclopramide IV* 5 MG/ML 2 ML VIAL IV PRN (20:05)
[2019-07-31] MEDS ORDERED: Naloxone* 0.4 MG/ML 1 ML VIAL IV PRN (20:05)
[2019-07-31] MEDS ORDERED: Sugammadex * 200 MG/2 ML VIAL IV PUSH ONE (20:47)
[2019-07-31] MEDS ORDERED: Labetalol IV* 5 MG/ML 20 ML VIAL ONE (21:01)
[2019-07-31] MEDS: HYDROmorphone INJ1* 1 MG/ML SYRINGE IV PRN ×2 (21:06→21:20)
[2019-07-31] MEDS: traZODone TAB* 100 MG PO SCH (22:59)
[2019-07-31] MEDS: Gabapentin CAP(*) 300 MG PO SCH (22:59)
[2019-07-31] MEDS: NS 0.9% 1000 ML** 1,000 ML IV SCH (23:13)
[2019-08-01] MEDS ORDERED: HYDROcodone/ACETAMIN 5-325 MG* 1 TAB PO PRN ×2 (00:23→09:32)
[2019-08-01] MEDS: Morphine INJ* 2 MG/ML 1 ML SYRINGE (TWO MG - NEW SYRINGE VERSION) IV PRN ×3 (02:23→08:37)
--- NOTE | 2019-08-01 03:05 | OP ---
DATE OF OPERATION: 07/31/19 - ROOM #338 DATE OF : 62 ATTENDING SURGEON: Timoteo Lozano MD SALES LEDGER CLERK: None. PRE-OP DIAGNOSIS: Small bowel obstruction. POST-OP DIAGNOSIS: Possible bowel obstruction. OPERATIVE PROCEDURE: Exploratory laparoscopy, lysis of adhesions, omental resection/partial. INDICATIONS FOR PROCEDURE: Abdominal pain and small bowel obstruction noted on CT scan as well as concerning findings of peritoneal studding. Risks of surgery included, but are not limited to, bleeding, infection, injury to bowel were explained to the patient who seemed to understand and agreed to the procedure and all questions were answered. DESCRIPTION OF PROCEDURE: The patient was taken to the operating room and placed supine. Preoperative antibiotics were given. After the successful induction of general endotracheal anesthesia, the abdomen was prepped and draped in sterile fashion. A left upper quadrant trocar was placed under direct visualization of the camera using a bladeless Optiview 5-mm trocar, pneumoperitoneum was achieved at 15 mmHg. A camera was placed in the abdomen. The abdomen was scanned. There was no obvious injury from trocar placement. A subxiphoid and left abdominal trocars were placed under direct visualization of the camera. The abdomen was scanned. Some serous/dark yellow fluid was noted in the pelvis. No purulence was noted. This was aspirated. The infundibulum appeared adhered down towards the pelvis. This was elevated and LigaSure was used to take the omentum off the left lateral abdominal wall and portions of the lower pelvis. It was not attached to the bowel per se. There were some firm nodules in this lower part of the omentum. This was resected and passed in an Endo bag. Small bowel was then run from the ileocecal valve up to the ligament of Treitz. No obstruction was noted. ome dilated bowels noted. The cecum and ascending colon appeared normal. Visualized portions of the transverse colon and sigmoid colon appeared normal. Gallbladder appeared normal. Liver appeared somewhat grossly nodular. No lesions were noted. Stomach appeared normal. A fourth trocar was placed at the umbilicus to help inspect the upper abdomen, irrigate and aspirate, and once again view the abdomen. EBL minimal. Hemostasis was intact. Pneumoperitoneum was released from the abdomen and the trocars were removed. The skin was closed with Monocryl and glue was applied. The patient tolerated the procedure well. She was extubated and taken to the recovery room in stable condition. [id number]/[facility] #: [id number] ELIZA
[2019-08-01] MEDS: MELATONIN 10MG TAB PO SCH ×2 (04:32→20:46)
[2019-08-01] MEDS: NS 0.9% 1000 ML** 1,000 ML IV SCH ×3 (05:45→20:55)
[2019-08-01 06:55] LABS: ABS Lymphocytes 0.9 10^3/ul (1.0-4.8); ABS Monocytes 0.6 10^3/ul (0-0.8); ABS Neutrophils 2.5 10^3/ul (1.5-7.7); Eosinophil % 0.7 %; Hematocrit 29 % (35-47); Hemoglobin 10.4 g/dL (12.0-16.0); Lymphocyte % 23.5 %; Mean Corpuscular HGB Conc 36 g/dL (31-36); Mean Corpuscular Hemoglobin 38 pg (27-31); Mean Corpuscular Volume 104 fL (80-97); Mean Platelet Volume 6.7 fL (7.4-10.4); Nucleated Red Blood Cells % 0.1; Platelet Count 58 10^3/uL (150-450); Red Blood Count 2.77 10^6 /uL (3.70-4.87); Red Cell Distribution Width 16 % (10-15)
[2019-08-01 07:09] LABS: Albumin 3.3 g/dL (3.2-5.2); Albumin/Globulin Ratio 1.7 (1-3); BUN/Creatinine Ratio 11.3 (8-20); C Reactive Protein 23.17 mg/L (<8.01); Calcium 7.9 mg/dL (8.6-10.3); EGFR African American 119.6 (>60); EGFR Non-African American 98.9 (>60); Globulin 1.9 g/dL (2-4); Potassium 3.9 mmol/L (3.5-5.0); Total Protein 5.2 g/dL (6.4-8.9)
[2019-08-01 08:36] LABS: Magnesium 1.6 mg/dL (1.9-2.7)
[2019-08-01] MEDS ORDERED: Magnesium Sulfate IV* 3 GM in NS 0.9% 100 ML* 100 ML IVPB ONE (09:00)
[2019-08-01] MEDS ORDERED: Acetaminophen TAB* 325 MG PO PRN (09:30)
[2019-08-01] MEDS ORDERED: Morphine INJ* 2 MG/ML 1 ML SYRINGE (TWO MG - NEW SYRINGE VERSION) IV PRN (09:32)
--- NOTE | 2019-08-01 09:44 | PN ---
Progress Note - Progress Note Date of Service: 08/01/19 Note: S: POD #1. c/o pain; current morphine not adequate. Denies N/V. Passing flatus. Would like to drink; no appetite. O: Vital Signs - 8 hr 08/01/19 08/01/19 08/01/19 02:20 02:23 04:10 Temperature 98 F 99.1 F Pulse Rate 83 83 Respiratory 16 16 16 Rate Blood Pressure 127/80 110/71 (mmHg) O2 Sat by Pulse 98 98 Oximetry 08/01/19 08/01/19 08/01/19 05:36 05:52 06:44 Temperature Pulse Rate Respiratory 16 16 16 Rate Blood Pressure (mmHg) O2 Sat by Pulse Oximetry 08/01/19 08/01/19 07:55 08:37 Temperature 98.8 F Pulse Rate 83 Respiratory 18 20 Rate Blood Pressure 115/62 (mmHg) O2 Sat by Pulse 98 Oximetry Intake and Output Last 24 Hours 07/30/19 07/31/19 08/01/19 08/02/19 06:59 06:59 06:59 06:59 Intake Total 2378 Output Total 200 Balance 2178 Weight 149 lb 14.629 oz Intake: IV Fluids 2378 LR 400 NS (0.9%) 978 Oral 0 Output: Urine 200 Gen: appears comfortable; NAD Heart: reg Lungs: clear ant Abd: lap sites ok; min ecchymosis at umbilicus; +BS; soft; mild to moderate tenderness, mostly LUQ A: s/p laparoscopic HEBER, omental rsxn; doing ok P: will adjust morphine dose; clear liquids; encourage ambulation; path pending ; discussed w/ Dr. Lozano
[2019-08-01] MEDS: Metoprolol Succinate XL TAB* 50 MG PO SCH (10:11)
[2019-08-01] MEDS: Folic Acid TAB* 1 MG PO SCH (10:11)
[2019-08-01] MEDS: BuPROPion XL* 150 MG TAB.XL PO SCH (10:11)
[2019-08-01] MEDS: Cyanocobalamin TAB* 500 MCG PO SCH (10:12)
[2019-08-01] MEDS: HYDROcodone/ACETAMIN 5-325 MG* 1 TAB PO PRN ×2 (14:47→19:20)
--- NOTE | 2019-08-01 18:58 | PN ---
Subjective Date of Service: 08/01/19 Interval History: Ms. Edward states she is doing well today. She is tolerating some PO liquid intake. She is passing some gas, but has not had a BM in 2d. She has R sided abdominal pain that is mild. No other complaints today. Objective Active Medications: Acetaminophen (Tylenol Tab*) 650 mg PO Q4H PRN PRN Reason: PAIN - MILD Hydrocodone Bitart/Acetaminophen (Shell 5-325 Tab*) 2 tab PO Q4H PRN PRN Reason: PAIN - MODERATE Last Admin: 08/01/19 14:47 Dose: 2 tab Bupropion HCl (Wellbutrin Xl *) 150 mg PO DAILY [facility] Last Admin: 08/01/19 10:11 Dose: 150 mg Cyanocobalamin (Vitamin B12 Tab*) 1,000 mcg PO DAILY [facility] Last Admin: 08/01/19 10:12 Dose: 1,000 mcg Folic Acid (Folvite Tab*) 1 mg PO DAILY [facility] Last Admin: 08/01/19 10:11 Dose: 1 mg Gabapentin (Neurontin Cap(*)) 300 mg PO BEDTIME [facility] Last Admin: 07/31/19 22:59 Dose: Not Given Sodium Chloride (Ns 0.9% 1000 Ml) 1,000 mls @ 150 mls/hr IV PER RATE [facility] Last Admin: 08/01/19 14:46 Dose: 150 mls/hr Melatonin (Melatonin (Nf)) 1 tab PO BEDTIME [facility] Last Admin: 08/01/19 04:32 Dose: Not Given Metoprolol Succinate (Toprol Xl Tab*) 50 mg PO DAILY [facility] Last Admin: 08/01/19 10:11 Dose: 50 mg Morphine Sulfate (Morphine Inj (Syringe))*) 4 mg IV Q2H PRN PRN Reason: PAIN - SEVERE Last Admin: 08/01/19 12:00 Dose: 4 mg Ondansetron HCl (Zofran Inj*) 4 mg IV Q4H PRN PRN Reason: NAUSEA/VOMITING Trazodone HCl (Desyrel Tab*) 100 mg PO BEDTIME [facility] Last Admin: 07/31/19 22:59 Dose: 100 mg Vital Signs: Temp Pulse Resp BP Pulse Ox 97.9 F 74 16 115/68 96 08/01/19 15:15 08/01/19 15:15 08/01/19 16:40 08/01/19 15:15 08/01/19 15:15 Oxygen Devices in Use Now: None Appearance: Ms. Edward is a middle-aged white female who is laying in bed sleeping; she wakes easily and appears to be in no acute distress. Ears/Nose/Mouth/Throat: NL Teeth, Lips, Gums, Clear Oropharnyx, Mucous Membranes Moist Neck: NL Appearance and Movements; NL JVP, Trachea Midline Respiratory: Symmetrical Chest Expansion and Respiratory Effort, Clear to Auscultation Cardiovascular: NL Sounds; No Murmurs; No JVD, RRR, No Edema Abdominal: No Hepatosplenomegaly, - - BS in all quadrants; mild abdominal distention with CDI dressing in place from lap; midly TTP at RUQ, epigastric area Extremities: No Edema, No Clubbing, Cyanosis Neurological: Alert and Oriented x 3 Result Diagrams: 08/01/19 06:40 08/01/19 06:40 Assess/Plan/Problems-Billing Assessment: 59 yof PMHx HTN, anxiety, EtOH abuse presents with possible SBO and peritoneal studding and is now s/p exploratory lap. - Patient Problems (1) SBO (small bowel obstruction) Comment: -management per primary team -clear liquids -continue ambulation -continue pain management -pathology pending (2) Hypertension Comment: -SBP 100-120's -continue metoprolol (3) Anxiety Comment: -bupropion, trazodone -continue gabapentin (4) Insomnia Comment: -continue trazodone, melatonin (5) Alcohol abuse Comment: -h/o daily alcohol use -does not appear to be in withdrawal -continue B12, folate -continue to monitor (6) DVT prophylaxis Comment: -per primary team: ambulation (7) Full code status Status and Disposition: Inpatient. Discharge per surgical team.
[2019-08-01] MEDS: traZODone TAB* 100 MG PO SCH (20:46)
[2019-08-01] MEDS: Gabapentin CAP(*) 300 MG PO SCH (20:46)
[2019-08-02] MEDS: HYDROcodone/ACETAMIN 5-325 MG* 1 TAB PO PRN ×3 (00:50→15:43)
[2019-08-02] MEDS: NS 0.9% 1000 ML** 1,000 ML IV SCH ×2 (03:31→10:56)
[2019-08-02 09:23] LABS: ABS Lymphocytes 0.8 10^3/ul (1.0-4.8); ABS Monocytes 0.3 10^3/ul (0-0.8); ABS Neutrophils 1.4 10^3/ul (1.5-7.7); Eosinophil % 1.6 %; Hematocrit 29 % (35-47); Lymphocyte % 29.7 %; Mean Corpuscular HGB Conc 35 g/dL (31-36); Mean Corpuscular Hemoglobin 37 pg (27-31); Mean Corpuscular Volume 106 fL (80-97); Platelet Count 58 10^3/uL (150-450); Red Blood Count 2.72 10^6 /uL (3.70-4.87); Red Cell Distribution Width 16 % (10-15); White Blood Count 2.5 10^3/uL (3.5-10.8)
--- NOTE | 2019-08-02 09:38 | PN ---
Progress Note - Progress Note Date of Service: 08/02/19 SOAP: Subjective: NAD Tolerated clears + Flatus - BM no nausea or vomiting [] Objective: Vital Signs Temp 98.3 F 08/02/19 07:40 Pulse 73 08/02/19 07:40 Resp 17 08/02/19 07:40 BP 109/67 08/02/19 07:40 Pulse Ox 93 08/02/19 07:40 Intake & Output 08/01/19 08/02/19 08/02/19 18:59 06:59 18:59 Intake Total 2044 2306 Output Total 2199 2049 Balance -155 257 Intake: IV Fluids 995 1887 NS (0.9%) 995 1887 IVPB 110 Magnesium 3 gram 110 Oral 940 420 Output: Urine 2199 2049 Other: # Bowel Movements 0 Laboratory Tests 08/01/19 08/02/19 08/02/19 06:40 08:49 08:49 WBC 4.0 2.5 L Potassium 3.3 L PEX GEN: NAD CHEST: CTAB CVS: RRR EXT: calves soft non tender [] Assessment: POD 2 S/P ExLap HEBER with Omental Resection, pain improved, Low K+ Low WBC [] Plan: Soft diet, advised pain meds only with pain not to prevent pain, advised deep breathing, IS, SCD's. Replace K+, Follow up pathology WBC may be dillutional Dulcolax suppository. If tolerates soft diet , BM, possible D/C later today
[2019-08-02 09:44] LABS: BUN/Creatinine Ratio 5.3 (8-20); EGFR African American 131.8 (>60); EGFR Non-African American 108.9 (>60); Magnesium 1.8 mg/dL (1.9-2.7); Potassium 3.3 mmol/L (3.5-5.0)
[2019-08-02] MEDS ORDERED: Magnesium Sulfate 2 GM IV* 2 GM/50 ML BAG IVPB ONE (10:26)
[2019-08-02] MEDS: Metoprolol Succinate XL TAB* 50 MG PO SCH (10:54)
[2019-08-02] MEDS: Cyanocobalamin TAB* 500 MCG PO SCH (10:56)
[2019-08-02] MEDS: BuPROPion XL* 150 MG TAB.XL PO SCH (10:56)
[2019-08-02] MEDS: Folic Acid TAB* 1 MG PO SCH (10:56)
[2019-08-02] MEDS: Potassium Chlor TAB* 20 MEQ TAB.ER PO SCH ×2 (10:56→13:04)
[2019-08-02] MEDS ORDERED: KCL 20 MEQ/100 ML IVPREMIX* 20 MEQ/100 ML BAG IV SCH (12:00)
[2019-08-02] MEDS ORDERED: NS 0.9% 1000 ML** 1,000 ML IV SCH (14:26)
[2019-08-02 16:53] VITALS: BP 148/85
--- NOTE | 2019-08-03 14:17 | DS ---
Discharge Summary Surgeon: Blake LAUGHLIN Admit Date:07/31/2019 Discharge Date: Admission DX:SBO Discharge DX: SBO Condition at Discharge: Stable Date of D/C PEX: Chest:CTA CVS:RRR ABD:soft, ND/NT EXT:calves soft non tender Procedures Performed: Exploratory Laparoscopy, HEBER, Omental resection Hospital Course:59 yo female admitted due to vomiting. CT scan suggestive of SBO, taken to the OR for a Exploratory Laparoscopy, HEBER, Omental resection. Tolerated well, then taken to the surgical floor for post op care including IV fluids, labs were checked, electrolytes were replaced as needed.on POD 2, + Flatus,+ BM, tolerating diet, moving bowels. Ready for home. Pt discharged to home in stable condition on 08/02/2019 Discharge instructions were given to the patient regarding Diet, Medications, Activity, and post operative Follow up. All Questions were answered. Discharged Home in Stable Condition on 08/02/2019
== END 2019-08-02 17:45 | disposition home or self-care (01) | DRG 224 ==
LOC: ED 07:57 → OR 13:07 → SSU 22:23
PROVIDERS: ADMIT Surgery; ATTEND Surgery
PROC: 0DBU4ZZ Excision of Omentum, Percutaneous Endoscopic Approach (ICD-10-PCS; 2019-07-31)
PROC: 0DNU4ZZ Release Omentum, Percutaneous Endoscopic Approach (ICD-10-PCS; principal; 2019-07-31 17:00)
DX: K56.50 Intestinal adhesions [bands], unspecified as to partial versus complete obstruction (principal); I10 Essential (primary) hypertension; F41.9 Anxiety disorder, unspecified; G47.00 Insomnia, unspecified; K66.8 Other specified disorders of peritoneum; F10.10 Alcohol abuse, uncomplicated; Z90.710 Acquired absence of both cervix and uterus; Z79.899 Other long term (current) drug therapy; Z91.041 Radiographic dye allergy status; Z91.013 Allergy to seafood
CPT/HCPCS: 36415; 71046; 74176; 76705; 80048; 80053; 82607; 82746; 83690; 83735; 85025; 85060; 86140; 87651; 88305; 88341; 88342; 88360; 93005; 99284; A9270-GY; J0690; J1170; J2270; J2405; J2704; J3475; J3490

== ENCOUNTER 2019-11-06 20:42 | Inpatient (IN) ==
[2019-11-06] MEDS ORDERED: Pantoprazole VIAL 40 MG VIAL IV ONE (21:11)
[2019-11-06] MEDS ORDERED: NS 0.9% 1000 ml BAG 1,000 ML IV ONE ×2 (21:11→23:20)
[2019-11-06] MEDS ORDERED: Ondansetron 4 mg VIAL 2 MG/ML 2 ml VIAL IV ONE (21:11)
[2019-11-06 21:52] LABS: ABS Lymphocytes 0.7 10^3/ul (1.0-4.8); ABS Monocytes 0.7 10^3/ul (0-0.8); Hematocrit 41 % (35-47); Hemoglobin 14.7 g/dL (12.0-16.0); Lymphocyte % 7.3 %; Mean Corpuscular HGB Conc 36 g/dL (31-36); Mean Corpuscular Hemoglobin 36 pg (27-31); Mean Corpuscular Volume 101 fL (80-97); Mean Platelet Volume 6.8 fL (7.4-10.4); Nucleated Red Blood Cells % 0.2; Platelet Count 102 10^3/uL (150-450); Red Blood Count 4.07 10^6 /uL (3.70-4.87); Red Cell Distribution Width 16 % (10-15); White Blood Count 9.2 10^3/uL (3.5-10.8)
[2019-11-06 22:02] LABS: INR 1.05 (0.82-1.09)
[2019-11-06] MEDS ORDERED: Lorazepam PYXIS KEY PRN (22:04)
[2019-11-06] MEDS ORDERED: LORazepam 2 mg VIAL 1 ml IV PUSH ONE (22:04)
[2019-11-06] MEDS ORDERED: Lorazepam PYXIS KEY ONE (22:07)
[2019-11-06 22:13] LABS: Albumin 4.6 g/dL (3.2-5.2); Albumin/Globulin Ratio 1.5 (1-3); BUN/Creatinine Ratio 10.3 (8-20); C Reactive Protein 12.54 mg/L (<8.01); Calcium 9.7 mg/dL (8.6-10.3); EGFR African American 80.9 (>60); EGFR Non-African American 66.9 (>60); Globulin 3.1 g/dL (2-4); Potassium 4.8 mmol/L (3.5-5.0); Total Bilirubin 1.2 mg/dL (0.2-1.0); Total Protein 7.7 g/dL (6.4-8.9)
[2019-11-06] MEDS ORDERED: Thiamine 100 MG/ML 2 ml VIAL (200 mg) IM ONE (22:23)
[2019-11-06] MEDS ORDERED: Enoxaparin 40 MG/0.4 ML SYR(*) SUBCUT SCH (23:45)
[2019-11-06] MEDS ORDERED: Thiamine 100 MG/ML 2 ml VIAL 100 MG, Folic Acid 1 MG, Multiple Vitamin IV ADULT 10 ML i... IV ONE (23:54)
[2019-11-06] MEDS ORDERED: NS 0.9% 1000 ml BAG 2,000 ML IV ONE (23:57)
[2019-11-06] MEDS ORDERED: Al Hydrox/Mg Hydrox/Simet LIQ 30 ML UDC PO PRN (23:59)
[2019-11-07 00:18] LABS: Troponin I 0.01 ng/mL (<0.03)
[2019-11-07 00:31] LABS: TSH (Thyroid Stimulating Horm) 1.12 mcIU/mL (0.34-5.60)
[2019-11-07 00:43] LABS: Folate 2.86 ng/mL (>3.99)
[2019-11-07] MEDS ORDERED: LORazepam 2 mg VIAL 1 ml IV PUSH SCH ×3 (01:00→04:18)
[2019-11-07 01:22] LABS: Urine Appearance Cloudy; Urine Bilirubin Negative (Negative); Urine Blood Negative (Negative); Urine Color Yellow; Urine Glucose 1+(50 mg/dL) (Negative); Urine Ketones 2+ (Negative); Urine Nitrite Negative (Negative); Urine Protein Negative (Negative); Urine Specific Gravity 1.013 (1.010-1.030); Urine Urobilinogen Negative (Negative)
[2019-11-07 01:27] LABS: Magnesium 1.4 mg/dL (1.9-2.7)
[2019-11-07] MEDS ORDERED: Magnesium Sulfate IV 3 GM in NS 0.9% 100 ml BAG 100 ML IVPB ONE (01:45)
[2019-11-07 02:09] LABS: Urine Benzodiazepine Screen None Detected (None Detect); Urine Opiates Screen None Detected (None Detect)
[2019-11-07] MEDS: LORazepam 1 mg TAB (*) PO SCH ×3 (02:34→17:11)
[2019-11-07] MEDS ORDERED: Adenosine 3 MG/ML 2 ml VIAL (6 mg) ONE (03:03)
[2019-11-07] MEDS ORDERED: Adenosine 3 MG/ML 2 ml VIAL (6 mg) IV PUSH ONE (03:15)
[2019-11-07] MEDS ORDERED: NS 0.9% 1000 ml BAG 1,000 ML IV SCH (03:30)
[2019-11-07 04:12] LABS: INR 1.16 (0.82-1.09)
[2019-11-07 04:22] LABS: Hematocrit 36 % (35-47); Hemoglobin 12.1 g/dL (12.0-16.0); Mean Corpuscular HGB Conc 34 g/dL (31-36); Mean Corpuscular Hemoglobin 35 pg (27-31); Mean Corpuscular Volume 102 fL (80-97); Red Blood Count 3.51 10^6 /uL (3.70-4.87); Red Cell Distribution Width 16 % (10-15); White Blood Count 6.1 10^3/uL (3.5-10.8)
[2019-11-07 04:23] LABS: ABS Lymphocytes 0.7 10^3/ul (1.0-4.8); ABS Monocytes 0.3 10^3/ul (0-0.8); Eosinophil % 0.1 %; Lymphocyte % 11.9 %
[2019-11-07 04:24] LABS: ALT 41 U/L (7-52); AST 100 U/L (13-39); Albumin 3.8 g/dL (3.2-5.2); Albumin/Globulin Ratio 1.6 (1-3); Alkaline Phosphatase 61 U/L (34-104); BUN/Creatinine Ratio 9.3 (8-20); Blood Urea Nitrogen 7 mg/dL (6-24); Calcium 7.7 mg/dL (8.6-10.3); Chloride 102 mmol/L (101-111); EGFR Non-African American 79.4 (>60); Globulin 2.4 g/dL (2-4); Glucose 108 mg/dL (70-100); Magnesium 1.6 mg/dL (1.9-2.7); Potassium 4.7 mmol/L (3.5-5.0); Sodium 133 mmol/L (135-145); Total Protein 6.2 g/dL (6.4-8.9)
[2019-11-07 04:27] LABS: Anion Gap 17 mmol/L (2-11); CO2 Carbon Dioxide 14 mmol/L (22-32)
[2019-11-07 04:28] LABS: Troponin I 0.03 ng/mL (<0.03)
[2019-11-07 04:47] LABS: Mean Platelet Volume 6.7 fL (7.4-10.4); Platelet Count 53 10^3/uL (150-450)
[2019-11-07] MEDS: Multivitamins/Minerals TAB PO SCH (08:31)
[2019-11-07 13:26] LABS: Troponin I 0.04 ng/mL (<0.03)
[2019-11-08] MEDS: Ondansetron 4 mg VIAL 2 MG/ML 2 ml VIAL IV PRN ×2 (01:06→20:33)
[2019-11-08 02:36] LABS: BUN/Creatinine Ratio 9.2 (8-20); Calcium 8.6 mg/dL (8.6-10.3); EGFR African American 113.3 (>60); EGFR Non-African American 93.6 (>60); Potassium 3.5 mmol/L (3.5-5.0)
[2019-11-08] MEDS: LORazepam 1 mg TAB (*) PO SCH (04:09)
[2019-11-08 08:32] LABS: Magnesium 1.9 mg/dL (1.9-2.7)
[2019-11-08] MEDS: Multivitamins/Minerals TAB PO SCH ×3 (09:51→11:34)
[2019-11-08] MEDS ORDERED: LORazepam 1 mg TAB (*) PO ONE (21:17)
[2019-11-09 05:22] LABS: Hematocrit 30 % (35-47); Hemoglobin 10.8 g/dL (12.0-16.0); Mean Corpuscular HGB Conc 36 g/dL (31-36); Mean Corpuscular Hemoglobin 35 pg (27-31); Mean Corpuscular Volume 99 fL (80-97); Mean Platelet Volume 7.3 fL (7.4-10.4); Platelet Count 37 10^3/uL (150-450); Red Blood Count 3.08 10^6 /uL (3.70-4.87); Red Cell Distribution Width 16 % (10-15); White Blood Count 2.9 10^3/uL (3.5-10.8)
[2019-11-09 05:33] LABS: Albumin 3.4 g/dL (3.2-5.2); Albumin/Globulin Ratio 1.5 (1-3); BUN/Creatinine Ratio 8.3 (8-20); Calcium 8.6 mg/dL (8.6-10.3); EGFR African American 124.2 (>60); EGFR Non-African American 102.7 (>60); Globulin 2.2 g/dL (2-4); Magnesium 1.5 mg/dL (1.9-2.7); Potassium 3.3 mmol/L (3.5-5.0); Total Bilirubin 1.1 mg/dL (0.2-1.0); Total Protein 5.6 g/dL (6.4-8.9)
[2019-11-09] MEDS ORDERED: Magnesium Sulfate IV 3 GM in NS 0.9% 100 ml BAG 100 ML IVPB ONE (08:40)
[2019-11-09] MEDS: KCL 20 MEQ/100 ML IVPREMIX 20 MEQ/100 ML BAG IV SCH ×3 (09:04→20:13)
[2019-11-09] MEDS: Multivitamins/Minerals TAB PO SCH (09:13)
[2019-11-09 12:25] LABS: ABS Eosinophils 0.1 10^3/ul (0-0.6); ABS Lymphocytes 0.7 10^3/ul (1.0-4.8); ABS Monocytes 0.2 10^3/ul (0-0.8); Hematocrit 32 % (35-47); Hemoglobin 11.3 g/dL (12.0-16.0); Lymphocyte % 26.8 %; Mean Corpuscular HGB Conc 35 g/dL (31-36); Mean Corpuscular Hemoglobin 35 pg (27-31); Mean Corpuscular Volume 99 fL (80-97); Mean Platelet Volume 7.1 fL (7.4-10.4); Nucleated Red Blood Cells % 0.1; Platelet Count 36 10^3/uL (150-450); Red Blood Count 3.24 10^6 /uL (3.70-4.87); Red Cell Distribution Width 16 % (10-15); White Blood Count 2.8 10^3/uL (3.5-10.8)
[2019-11-09] MEDS ORDERED: LORazepam 1 mg TAB (*) PO SCH (16:00)
[2019-11-09] MEDS ORDERED: Gadoxetate (CONTRAST) 181.43 MG/ML 10 ML SDV IV ONE (16:16)
[2019-11-09 21:36] LABS: HIT ELISA 0.081 OD (<0.400)
[2019-11-10 05:32] LABS: INR 1.19 (0.82-1.09)
[2019-11-10 05:33] LABS: ABS Eosinophils 0.1 10^3/ul (0-0.6); ABS Lymphocytes 0.8 10^3/ul (1.0-4.8); ABS Monocytes 0.3 10^3/ul (0-0.8); Eosinophil % 4.2 %; Hematocrit 31 % (35-47); Hemoglobin 10.9 g/dL (12.0-16.0); Lymphocyte % 33.3 %; Mean Corpuscular HGB Conc 35 g/dL (31-36); Mean Corpuscular Hemoglobin 35 pg (27-31); Mean Corpuscular Volume 99 fL (80-97); Platelet Count 40 10^3/uL (150-450); Red Blood Count 3.13 10^6 /uL (3.70-4.87); Red Cell Distribution Width 15 % (10-15); White Blood Count 2.5 10^3/uL (3.5-10.8)
[2019-11-10 05:43] LABS: Albumin 3.4 g/dL (3.2-5.2); Albumin/Globulin Ratio 1.5 (1-3); BUN/Creatinine Ratio 6.3 (8-20); Calcium 8.8 mg/dL (8.6-10.3); EGFR African American 115.3 (>60); EGFR Non-African American 95.3 (>60); Globulin 2.2 g/dL (2-4); Potassium 3.9 mmol/L (3.5-5.0); Total Protein 5.6 g/dL (6.4-8.9)
[2019-11-10] MEDS: Multivitamins/Minerals TAB PO SCH (09:14)
[2019-11-10 10:49] LABS: Magnesium 1.8 mg/dL (1.9-2.7)
[2019-11-10 20:07] VITALS: BP 174/84
[2019-11-12 15:45] LABS: Anaplasma phagocytophilium <1:64 titer (<1:64); Ehrlichia chaffeensis IgG AB <1:64 titer (<1:64); Lyme Disease Serology Negative (Negative)
== END 2019-11-10 18:49 | disposition home or self-care (01) | DRG 249 ==
LOC: ED 20:42 → ICU 11-07 00:31 → MEDTELE 11-07 16:19
PROVIDERS: ADMIT Pediatrics; ATTEND Internal Medicine

== ENCOUNTER 2023-08-14 10:11 | Inpatient (IN) ==
[2023-08-14 14:52] LABS: ABS Monocytes 1.1 10^3/uL (0.0-0.9); ABS Neutrophils 4.9 10^3/uL (1.5-7.6); Eosinophil % 0.6 %; Hematocrit 35.9 % (35-45); Hemoglobin 12.4 g/dL (11.5-14.3); Lymphocyte % 13.9 %; Mean Corpuscular Hemoglobin 34.5 pg (27-33); Mean Corpuscular Hgb Conc 34.5 g/dL (31-36); Mean Corpuscular Volume 100.1 fL (80-97); Mean Platelet Volume 7.8 fL (7.5-11.2); Platelet Count 136 10^3/uL (150-450); Red Blood Count 3.58 10^6/uL (3.63-4.92); White Blood Count 7.1 10^3/uL (3.8-11.8)
[2023-08-14 15:10] LABS: INR 1.92 (0.83-1.13)
[2023-08-14 15:48] LABS: C Reactive Protein 92.27 mg/L (<8.01); Calcium 8.4 mg/dL (8.6-10.3); Creatinine, Serum 0.96 mg/dL (0.51-0.95); Potassium 4.1 mmol/L (3.5-5.0); eGFR CKD-EPI 66.9 (>60)
[2023-08-14 16:12] LABS: High Sensitivity Troponin 1 Hr 17 pg/mL (<15)
[2023-08-14 16:12] LABS: Albumin 2.8 g/dL (3.2-5.2); Albumin/Globulin Ratio 0.9 (1-3); Globulin 3.1 g/dL (2-4); Total Bilirubin 13.6 mg/dL (0.2-1.0); Total Protein 5.9 g/dL (6.4-8.9)
[2023-08-14] MEDS ORDERED: Iohexol 350 (CONTRAST) 500 ML MDV IV ONE (16:36)
[2023-08-14 20:52] LABS: ABS Basophils 0.1 10^3/uL (0.0-0.1); ABS Eosinophils 0.1 10^3/uL (0.0-0.5); ABS Monocytes 1.2 10^3/uL (0.0-0.9); ABS Neutrophils 4.6 10^3/uL (1.5-7.6); ABS Nucleated RBC 0.01 10^3/ul; Eosinophil % 0.8 %; Hematocrit 36.4 % (35-45); Hemoglobin 12.5 g/dL (11.5-14.3); Lymphocyte % 14.9 %; Mean Corpuscular Hemoglobin 34.6 pg (27-33); Mean Corpuscular Hgb Conc 34.4 g/dL (31-36); Mean Corpuscular Volume 100.5 fL (80-97); Mean Platelet Volume 7.6 fL (7.5-11.2); Nucleated Red Blood Cells % 0.1 %/100WBC (0.0-0.8); Platelet Count 148 10^3/uL (150-450); Red Blood Count 3.63 10^6/uL (3.63-4.92); Red Cell Distribution Width 21.8 % (12-17); White Blood Count 6.9 10^3/uL (3.8-11.8)
[2023-08-14 20:55] LABS: INR 1.91 (0.83-1.13)
[2023-08-14] MEDS ORDERED: Senna TAB 8.6 mg TAB PO PRN (21:21)
[2023-08-14] MEDS: Thiamine 100 MG/ML 2 ml VIAL (200 mg) IM ONE (21:32)
[2023-08-14 21:34] LABS: Anion Gap 7 mmol/L (2-16); Blood Urea Nitrogen 16 mg/dL (6-24); CO2 Carbon Dioxide 31 mmol/L (22-32); Calcium 8.4 mg/dL (8.6-10.3); Chloride 92 mmol/L (101-111); Creatinine, Serum 0.98 mg/dL (0.51-0.95); Glucose 98 mg/dL (70-100); Potassium 4.2 mmol/L (3.5-5.0); Sodium 130 mmol/L (135-145); eGFR CKD-EPI 65.3 (>60)
[2023-08-14 21:47] LABS: ALT 63 U/L (7-52); AST 196 U/L (13-39); Albumin 2.8 g/dL (3.2-5.2); Albumin/Globulin Ratio 0.9 (1-3); Alkaline Phosphatase 152 U/L (35-149); Globulin 3.1 g/dL (2-4); Total Bilirubin 13.6 mg/dL (0.2-1.0); Total Protein 5.9 g/dL (6.4-8.9)
[2023-08-14 22:02] LABS: Magnesium 1.7 mg/dL (1.9-2.7)
[2023-08-14 22:25] LABS: Vitamin B12 > 1450 pg/mL (180-914)
[2023-08-14 22:49] LABS: Direct Bilirubin 7.2 mg/dL (0.03-0.18)
[2023-08-14] MEDS ORDERED: Morphine 2 MG/ML SYRINGE ONE (23:30)
[2023-08-14] MEDS: Morphine 2 MG/ML SYRINGE IV ONE (23:33)
[2023-08-14 23:37] LABS: Protime (Maddrey) 20.9 seconds (9.5-12.8)
[2023-08-14 23:57] LABS: Hepatitis B Surface Antigen Nonreactive (Nonreactive)
[2023-08-15 00:03] LABS: Hepatitis A Ab IgM Negative (Negative); Hepatitis B Core IgM Nonreactive (Nonreactive)
[2023-08-15 00:15] LABS: Hepatitis C Antibody Negative (Negative)
[2023-08-15] MEDS: Thiamine 100 MG/ML 2 ml VIAL 100 MG in NS 0.9% 50 ML 50 ML IV ONE (00:26)
[2023-08-15] MEDS: Ondansetron ODT 4 mg TAB 4 MG TAB SL ONE (00:29)
[2023-08-15] MEDS: Furosemide 40 mg/4 ml IV VIAL IV SLOW PU ONE (00:29)
[2023-08-15] MEDS: Pantoprazole VIAL 40 MG VIAL IV SCH (00:30)
[2023-08-15] MEDS: cefTRIAXone 2 gm/50 mL D5W 2 GM/50 ML BAG IV SCH (00:58)
[2023-08-15 01:23] LABS: Body Fluid Total Nucleated 131 /mcL
[2023-08-15 01:49] LABS: Body Fluid Appearance Clear; Body Fluid Color Yellow; Body Fluid Mono 90 %; Body Fluid Other Cells 50; Body Fluid Source Peritonial Fluid; Body Fluid Total Cells Counted 200
[2023-08-15 03:04] LABS: Hematocrit 33.1 % (35-45); Hemoglobin 11.5 g/dL (11.5-14.3)
[2023-08-15 05:57] LABS: INR 2.06 (0.83-1.13)
[2023-08-15 06:05] LABS: Hematocrit 32.6 % (35-45); Hemoglobin 11.2 g/dL (11.5-14.3); Mean Corpuscular Hemoglobin 34.3 pg (27-33); Mean Corpuscular Hgb Conc 34.3 g/dL (31-36); Mean Corpuscular Volume 100.3 fL (80-97); Platelet Count 127 10^3/uL (150-450); Red Blood Count 3.25 10^6/uL (3.63-4.92); Red Cell Distribution Width 22.3 % (12-17); White Blood Count 6.5 10^3/uL (3.8-11.8)
[2023-08-15 06:22] LABS: ABS Basophils 0.1 10^3/uL (0.0-0.1); ABS Monocytes 0.9 10^3/uL (0.0-0.9); ABS Neutrophils 4.6 10^3/uL (1.5-7.6); ABS Nucleated RBC 0.02 10^3/ul; Eosinophil % 0.2 %; Lymphocyte % 14.6 %; Nucleated Red Blood Cells % 0.3 %/100WBC (0.0-0.8)
[2023-08-15 06:40] LABS: Calcium 7.9 mg/dL (8.6-10.3); Creatinine, Serum 1.08 mg/dL (0.51-0.95); Potassium 4.3 mmol/L (3.5-5.0); eGFR CKD-EPI 58.1 (>60)
[2023-08-15 06:42] LABS: Albumin 2.6 g/dL (3.2-5.2); Albumin/Globulin Ratio 0.9 (1-3); Globulin 2.8 g/dL (2-4); Total Bilirubin 13.2 mg/dL (0.2-1.0); Total Protein 5.4 g/dL (6.4-8.9)
[2023-08-15] MEDS: Lactulose 30 ml UDC PO SCH (08:41)
[2023-08-15] MEDS: Multivitamins/Minerals TAB PO SCH (08:42)
[2023-08-15] MEDS: Ondansetron 4 mg VIAL 2 MG/ML 2 ml VIAL IV PRN (08:45)
[2023-08-15] MEDS: HYDROcodone/ACETAMIN 5/325 mg TAB PO ONE (09:28)
[2023-08-15 14:57] LABS: Hematocrit 33.4 % (35-45); Hemoglobin 11.5 g/dL (11.5-14.3)
[2023-08-15] MEDS: HYDROcodone/ACETAMIN 5/325 mg TAB PO PRN (17:59)
[2023-08-16] MEDS: cefTRIAXone 2 gm/50 mL D5W 2 GM/50 ML BAG IV SCH (00:04)
[2023-08-16 00:34] LABS: Hematocrit 30.9 % (35-45); Hemoglobin 10.9 g/dL (11.5-14.3)
[2023-08-16 06:51] LABS: ABS Eosinophils 0.1 10^3/uL (0.0-0.5); ABS Lymphocytes 0.7 10^3/uL (1.0-4.8); ABS Monocytes 0.9 10^3/uL (0.0-0.9); ABS Neutrophils 3.6 10^3/uL (1.5-7.6); Eosinophil % 1.5 %; Hematocrit 32.9 % (35-45); Hemoglobin 11.2 g/dL (11.5-14.3); Lymphocyte % 13.7 %; Mean Corpuscular Hemoglobin 34.5 pg (27-33); Mean Corpuscular Hgb Conc 34.2 g/dL (31-36); Mean Corpuscular Volume 100.8 fL (80-97); Mean Platelet Volume 7.7 fL (7.5-11.2); Nucleated Red Blood Cells % 0.1 %/100WBC (0.0-0.8); Platelet Count 105 10^3/uL (150-450); Red Blood Count 3.26 10^6/uL (3.63-4.92); Red Cell Distribution Width 21.9 % (12-17); White Blood Count 5.4 10^3/uL (3.8-11.8)
[2023-08-16 07:05] LABS: Albumin 2.5 g/dL (3.2-5.2); Albumin/Globulin Ratio 0.9 (1-3); Calcium 8.1 mg/dL (8.6-10.3); Creatinine, Serum 1.67 mg/dL (0.51-0.95); Globulin 2.7 g/dL (2-4); Total Bilirubin 11.5 mg/dL (0.2-1.0); Total Protein 5.2 g/dL (6.4-8.9); eGFR CKD-EPI 34.4 (>60)
[2023-08-16] MEDS: Pantoprazole VIAL 40 MG VIAL IV SCH (09:56)
[2023-08-16] MEDS: NS 0.9% 500 ml BAG 500 ML IV ONE (11:39)
[2023-08-16 16:09] LABS: Hematocrit 33.4 % (35-45); Hemoglobin 11.4 g/dL (11.5-14.3)
[2023-08-16 16:25] LABS: Calcium 7.6 mg/dL (8.6-10.3); Creatinine, Serum 1.62 mg/dL (0.51-0.95); Potassium 4.3 mmol/L (3.5-5.0); eGFR CKD-EPI 35.7 (>60)
[2023-08-17] MEDS: cefTRIAXone 1 gm/50 mL D5W 1 GM/50 ML BAG IV SCH (01:32)
[2023-08-17 05:24] LABS: ABS Lymphocytes 0.6 10^3/uL (1.0-4.8); ABS Monocytes 0.8 10^3/uL (0.0-0.9); ABS Neutrophils 5.5 10^3/uL (1.5-7.6); Eosinophil % 0.1 %; Hemoglobin 11.3 g/dL (11.5-14.3); Lymphocyte % 8.1 %; Mean Corpuscular Hemoglobin 34.8 pg (27-33); Mean Corpuscular Hgb Conc 34.4 g/dL (31-36); Mean Corpuscular Volume 101.1 fL (80-97); Mean Platelet Volume 7.8 fL (7.5-11.2); Platelet Count 111 10^3/uL (150-450); Red Blood Count 3.26 10^6/uL (3.63-4.92); White Blood Count 6.9 10^3/uL (3.8-11.8)
[2023-08-17 06:01] LABS: Albumin 2.5 g/dL (3.2-5.2); Albumin/Globulin Ratio 0.9 (1-3); Creatinine, Serum 1.49 mg/dL (0.51-0.95); Globulin 2.8 g/dL (2-4); Magnesium 1.8 mg/dL (1.9-2.7); Potassium 4.2 mmol/L (3.5-5.0); Total Bilirubin 11.2 mg/dL (0.2-1.0); Total Protein 5.3 g/dL (6.4-8.9); eGFR CKD-EPI 39.5 (>60)
[2023-08-17] MEDS: Magnesium Sulfate 2 gm BAG 2 GM/50 ML BAG IVPB ONE (08:07)
[2023-08-17 15:09] LABS: BF PH 7.7
[2023-08-17 15:46] LABS: Albumin, BF 0.4 g/dL; Fluid Type, Albumin PERITONEAL FLUID; Fluid Type, Protein, Total PERITONEAL FLUID; Glucose, BF 113 mg/dL; Total Protein, BF 0.5 g/dL
[2023-08-18 07:00] LABS: ABS Lymphocytes 0.5 10^3/uL (1.0-4.8); ABS Neutrophils 5.9 10^3/uL (1.5-7.6); Eosinophil % 0.1 %; Hematocrit 32.2 % (35-45); Hemoglobin 11.2 g/dL (11.5-14.3); Mean Corpuscular Hgb Conc 34.7 g/dL (31-36); Mean Corpuscular Volume 100.8 fL (80-97); Mean Platelet Volume 7.9 fL (7.5-11.2); Platelet Count 107 10^3/uL (150-450); Red Blood Count 3.19 10^6/uL (3.63-4.92); Red Cell Distribution Width 21.9 % (12-17); White Blood Count 7.4 10^3/uL (3.8-11.8)
[2023-08-18 07:17] LABS: Creatinine, Serum 1.42 mg/dL (0.51-0.95); Magnesium 2.4 mg/dL (1.9-2.7); Potassium 4.3 mmol/L (3.5-5.0); eGFR CKD-EPI 41.8 (>60)
[2023-08-18 14:51] VITALS: BP 146/76
== END 2023-08-18 15:42 | disposition home or self-care (01) | DRG 254 ==
LOC: ED 10:11 → EDHOLD 21:21 → SUATTDRO 21:21 → EDHOLD 08-15 08:20 → MED 08-15 11:33
PROVIDERS: ADMIT Hospitalist; ATTEND Internal Medicine

== ENCOUNTER 2023-08-24 09:21 | Inpatient (IN) ==
[2023-08-24 10:40] LABS: Hematocrit 37.6 % (35-45); Hemoglobin 12.6 g/dL (11.5-14.3); Mean Corpuscular Hemoglobin 34.7 pg (27-33); Mean Corpuscular Hgb Conc 33.6 g/dL (31-36); Mean Corpuscular Volume 103.3 fL (80-97); Mean Platelet Volume 8.1 fL (7.5-11.2); Platelet Count 156 10^3/uL (150-450); Red Blood Count 3.64 10^6/uL (3.63-4.92); Red Cell Distribution Width 20.4 % (12-17); White Blood Count 16.7 10^3/uL (3.8-11.8)
[2023-08-24 10:43] LABS: Urine Appearance Turbid; Urine Bilirubin 2+ (Negative); Urine Blood Negative (Negative); Urine Color Dark-Yellow; Urine Glucose Negative (Negative); Urine Ketones Negative (Negative); Urine Nitrite Negative (Negative); Urine Protein Trace (Negative); Urine Specific Gravity 1.022 (1.002-1.030); Urine Urobilinogen Negative (Negative); Urine pH 5.5 (5.0-8.0)
[2023-08-24 10:59] LABS: C Reactive Protein 51.84 mg/L (<8.01); Calcium 8.9 mg/dL (8.6-10.3); Creatinine, Serum 1.5 mg/dL (0.51-0.95); Potassium 5.4 mmol/L (3.5-5.0); eGFR CKD-EPI 39.2 (>60)
[2023-08-24 11:00] LABS: ABS Basophils 0.1 10^3/uL (0.0-0.1); ABS Eosinophils 0.1 10^3/uL (0.0-0.5); ABS Lymphocytes 0.6 10^3/uL (1.0-4.8); ABS Monocytes 2.1 10^3/uL (0.0-0.9); ABS Neutrophils 13.9 10^3/uL (1.5-7.6); ABS Nucleated RBC 0.01 10^3/ul; Eosinophil % 0.4 %; Lymphocyte % 3.5 %
[2023-08-24 11:02] LABS: Albumin 2.7 g/dL (3.2-5.2); Direct Bilirubin 8.7 mg/dL (0.03-0.18); Globulin 2.7 g/dL (2-4); Indirect Bilirubin 7.1 mg/dL (0.3-1.0); Magnesium 2.2 mg/dL (1.9-2.7); Total Bilirubin 15.8 mg/dL (0.2-1.0); Total Protein 5.4 g/dL (6.4-8.9)
[2023-08-24] MEDS: Piperacillin/Tazobac 3.375 BAG 3.375 GM/100 ML BAG IV ONE (12:25)
[2023-08-24 12:39] LABS: Hepatitis C Antibody Negative (Negative)
[2023-08-24 13:01] LABS: INR 2.13 (0.83-1.13)
[2023-08-24 16:04] LABS: Body Fluid Appearance Clear; Body Fluid Color Yellow; Body Fluid Source Peritonial Fluid
[2023-08-24] MEDS: Pantoprazole VIAL 40 MG VIAL IV ONE (16:18)
[2023-08-24] MEDS: Pantoprazole 80 mg in NS BAG 80 MG/250 ML BAG IV ONE (16:19)
[2023-08-24] MEDS: Lactated Ringers 1000 ml BAG 1,000 ML IV ONE (16:19)
[2023-08-24 16:56] LABS: Body Fluid Mono 24 %; Body Fluid Other Cells 5; Body Fluid Total Cells Counted 90
[2023-08-24 17:05] LABS: Body Fluid Total Nucleated 5 /mcL
[2023-08-24] MEDS: Octreotide Acetate 50 MCG in NS 0.9% 50 ML 50 ML IV ONE (18:39)
[2023-08-24] MEDS: Thiamine 100 MG/ML 2 ml VIAL (200 mg) IM ONE (18:51)
[2023-08-24] MEDS ORDERED: Multivitamins/Minerals TAB PO SCH (19:00)
[2023-08-24] MEDS: Octreotide Acetate 500 MCG in NS 0.9% 100 ml BAG 100 ML IV SCH (19:16)
[2023-08-24] MEDS: cefTRIAXone 1 gm/50 mL D5W 1 GM/50 ML BAG IV SCH (19:45)
[2023-08-25] MEDS: Pantoprazole VIAL 40 MG VIAL IV SCH (05:21)
[2023-08-25] MEDS: Octreotide Acetate 500 MCG in NS 0.9% 100 ml BAG 100 ML IV SCH (05:21)
[2023-08-25 07:25] LABS: Hematocrit 33.8 % (35-45); Hemoglobin 11.5 g/dL (11.5-14.3); Mean Corpuscular Hemoglobin 35.2 pg (27-33); Mean Corpuscular Volume 103.6 fL (80-97); Red Blood Count 3.27 10^6/uL (3.63-4.92); Red Cell Distribution Width 19.8 % (12-17); White Blood Count 15.2 10^3/uL (3.8-11.8)
[2023-08-25 07:56] LABS: ABS Eosinophils 0.1 10^3/uL (0.0-0.5); ABS Lymphocytes 0.6 10^3/uL (1.0-4.8); ABS Monocytes 1.4 10^3/uL (0.0-0.9); ABS Neutrophils 13.1 10^3/uL (1.5-7.6); ABS Nucleated RBC 0.02 10^3/ul; Eosinophil % 0.4 %; Lymphocyte % 4.2 %; Nucleated Red Blood Cells % 0.1 %/100WBC (0.0-0.8); Platelet Count Platelets clumped. 10^3/uL (150-450)
[2023-08-25 07:57] LABS: Calcium 8.4 mg/dL (8.6-10.3); Creatinine, Serum 1.68 mg/dL (0.51-0.95); Potassium 5.4 mmol/L (3.5-5.0); eGFR CKD-EPI 34.2 (>60)
[2023-08-25 08:03] LABS: Albumin 2.5 g/dL (3.2-5.2); Globulin 2.5 g/dL (2-4); Total Bilirubin 16.6 mg/dL (0.2-1.0)
[2023-08-25] MEDS ORDERED: Naloxone 0.4 mg VIAL 0.4 mg/ml 1 ml VIAL IV PRN (16:44)
[2023-08-25] MEDS: Albumin Human 25% 25 GM/100 ML BTL IV SCH (16:56)
[2023-08-25] MEDS: Bumetanide IV 0.25 MG/ML 4 ml VIAL (1 mg) IV SLOW PU ONE (17:10)
[2023-08-26 07:00] LABS: Calcium 8.7 mg/dL (8.6-10.3); Creatinine, Serum 2.02 mg/dL (0.51-0.95); Potassium 4.8 mmol/L (3.5-5.0); eGFR CKD-EPI 27.4 (>60)
[2023-08-26 07:41] LABS: ABS Eosinophils 0.1 10^3/uL (0.0-0.5); ABS Lymphocytes 0.7 10^3/uL (1.0-4.8); ABS Monocytes 0.9 10^3/uL (0.0-0.9); ABS Neutrophils 8.2 10^3/uL (1.5-7.6); Eosinophil % 1.2 %; Hematocrit 27.5 % (35-45); Hemoglobin 9.5 g/dL (11.5-14.3); Lymphocyte % 7.5 %; Mean Corpuscular Hemoglobin 35.7 pg (27-33); Mean Corpuscular Hgb Conc 34.4 g/dL (31-36); Mean Corpuscular Volume 103.8 fL (80-97); Mean Platelet Volume 7.8 fL (7.5-11.2); Platelet Count 66 10^3/uL (150-450); Red Blood Count 2.65 10^6/uL (3.63-4.92); Red Cell Distribution Width 19.2 % (12-17); White Blood Count 9.9 10^3/uL (3.8-11.8)
[2023-08-26] MEDS: Albumin Human 25% 25 GM/100 ML BTL IV SCH (08:20)
[2023-08-26 08:36] LABS: Albumin 3.9 g/dL (3.2-5.2); Albumin/Globulin Ratio 2.6 (1-3); Globulin 1.5 g/dL (2-4); Total Bilirubin 15.4 mg/dL (0.2-1.0); Total Protein 5.4 g/dL (6.4-8.9)
[2023-08-26] MEDS: Bumetanide IV 0.25 MG/ML 4 ml VIAL (1 mg) IV SLOW PU ONE (11:01)
[2023-08-27 05:48] LABS: Calcium 8.7 mg/dL (8.6-10.3); Creatinine, Serum 1.91 mg/dL (0.51-0.95); Potassium 3.9 mmol/L (3.5-5.0); eGFR CKD-EPI 29.3 (>60)
[2023-08-27 05:49] LABS: ABS Eosinophils 0.1 10^3/uL (0.0-0.5); ABS Lymphocytes 0.6 10^3/uL (1.0-4.8); ABS Neutrophils 8.8 10^3/uL (1.5-7.6); Eosinophil % 1.1 %; Hematocrit 25.8 % (35-45); Hemoglobin 9.1 g/dL (11.5-14.3); Lymphocyte % 5.3 %; Mean Corpuscular Hemoglobin 36.4 pg (27-33); Mean Corpuscular Hgb Conc 35.1 g/dL (31-36); Mean Corpuscular Volume 103.8 fL (80-97); Mean Platelet Volume 8.1 fL (7.5-11.2); Platelet Count 60 10^3/uL (150-450); Red Blood Count 2.49 10^6/uL (3.63-4.92); Red Cell Distribution Width 18.9 % (12-17); White Blood Count 10.5 10^3/uL (3.8-11.8)
[2023-08-27 08:03] LABS: Albumin 4.2 g/dL (3.2-5.2); Albumin/Globulin Ratio 3.2 (1-3); Direct Bilirubin 7.3 mg/dL (0.03-0.18); Globulin 1.3 g/dL (2-4); Indirect Bilirubin 6.9 mg/dL (0.3-1.0); Total Bilirubin 14.2 mg/dL (0.2-1.0); Total Protein 5.5 g/dL (6.4-8.9)
[2023-08-27] MEDS: Bumetanide IV 0.25 MG/ML 4 ml VIAL (1 mg) IV SLOW PU ONE ×2 (09:11→16:12)
[2023-08-27] MEDS: Albumin Human 25% 25 GM/100 ML BTL IV SCH (09:16)
[2023-08-27] MEDS ORDERED: Bumetanide IV 0.25 MG/ML 4 ml VIAL (1 mg) IV SLOW PU ONE (16:00)
[2023-08-28 05:43] LABS: Hematocrit 23.6 % (35-45); Hemoglobin 8.3 g/dL (11.5-14.3); Mean Corpuscular Hemoglobin 36.6 pg (27-33); Mean Corpuscular Hgb Conc 35.1 g/dL (31-36); Mean Corpuscular Volume 104.4 fL (80-97); Red Blood Count 2.26 10^6/uL (3.63-4.92); Red Cell Distribution Width 18.6 % (12-17); White Blood Count 7.6 10^3/uL (3.8-11.8)
[2023-08-28 05:58] LABS: Anion Gap 11 mmol/L (2-16); Blood Urea Nitrogen 58 mg/dL (6-24); CO2 Carbon Dioxide 33 mmol/L (22-32); Calcium 8.9 mg/dL (8.6-10.3); Chloride 93 mmol/L (101-111); Creatinine, Serum 1.78 mg/dL (0.51-0.95); Glucose 110 mg/dL (70-100); Potassium 3.2 mmol/L (3.5-5.0); Sodium 137 mmol/L (135-145); eGFR CKD-EPI 31.9 (>60)
[2023-08-28 06:02] LABS: ALT 106 U/L (7-52); AST 178 U/L (13-39); Albumin 4.5 g/dL (3.2-5.2); Albumin/Globulin Ratio 4.1 (1-3); Alkaline Phosphatase 78 U/L (35-149); Globulin 1.1 g/dL (2-4); Total Bilirubin 14.8 mg/dL (0.2-1.0); Total Protein 5.6 g/dL (6.4-8.9)
[2023-08-28 06:30] LABS: ABS Eosinophils 0.1 10^3/uL (0.0-0.5); ABS Lymphocytes 0.5 10^3/uL (1.0-4.8); ABS Monocytes 0.8 10^3/uL (0.0-0.9); ABS Neutrophils 6.2 10^3/uL (1.5-7.6); Eosinophil % 1.2 %; Lymphocyte % 7.1 %; Mean Platelet Volume 7.8 fL (7.5-11.2); Platelet Count 51 10^3/uL (150-450)
[2023-08-28 07:24] LABS: Magnesium 1.7 mg/dL (1.9-2.7)
[2023-08-28] MEDS: Magnesium Sulfate 2 gm BAG 2 GM/50 ML BAG IVPB ONE (09:17)
[2023-08-28] MEDS: Potassium Chloride LIQUID 20 MEQ/15 ML LIQUID PO ONE (09:24)
[2023-08-28 09:57] LABS: % Iron Saturation 64 % (15-55); .Transferrin < 75 mg/dL (203-362); Iron 67 ug/dL (50-212); Total Iron Binding Capacity 105 mcg/dL (250-450); Unsaturated Iron Binding 38 ug/dL
[2023-08-28 10:18] LABS: Ferritin 119.8 ng/mL (11-307)
[2023-08-28] MEDS: Magnesium Sulfate IV 1GM/100ML 1 GM/100 ML BAG IV ONE (13:03)
[2023-08-28] MEDS: Bumetanide IV 0.25 MG/ML 4 ml VIAL (1 mg) IV SLOW PU SCH (13:06)
[2023-08-28] MEDS: KCL 20 MEQ/100 ML IVPREMIX 20 MEQ/100 ML BAG IV SCH (14:06)
[2023-08-29 07:52] LABS: Hematocrit 24.1 % (35-45); Hemoglobin 8.4 g/dL (11.5-14.3); Mean Corpuscular Hemoglobin 36.5 pg (27-33); Mean Corpuscular Hgb Conc 34.7 g/dL (31-36); Mean Corpuscular Volume 105.3 fL (80-97); Red Blood Count 2.29 10^6/uL (3.63-4.92); Red Cell Distribution Width 18.5 % (12-17); White Blood Count 7.1 10^3/uL (3.8-11.8)
[2023-08-29 08:02] LABS: Calcium 9.2 mg/dL (8.6-10.3); Creatinine, Serum 1.73 mg/dL (0.51-0.95); Potassium 3.2 mmol/L (3.5-5.0)
[2023-08-29 08:09] LABS: Albumin 4.7 g/dL (3.2-5.2); Albumin/Globulin Ratio 5.2 (1-3); Globulin 0.9 g/dL (2-4); INR 3.15 (0.83-1.13); Total Bilirubin 15.9 mg/dL (0.2-1.0); Total Protein 5.6 g/dL (6.4-8.9)
[2023-08-29 08:15] LABS: ABS Eosinophils 0.1 10^3/uL (0.0-0.5); ABS Lymphocytes 0.6 10^3/uL (1.0-4.8); ABS Monocytes 0.7 10^3/uL (0.0-0.9); ABS Neutrophils 5.7 10^3/uL (1.5-7.6); ABS Nucleated RBC 0.02 10^3/ul; Eosinophil % 1.4 %; Lymphocyte % 7.9 %; Mean Platelet Volume 8.2 fL (7.5-11.2); Nucleated Red Blood Cells % 0.2 %/100WBC (0.0-0.8); Platelet Count 50 10^3/uL (150-450)
[2023-08-29] MEDS ORDERED: Potassium Chlor 20 meq TAB.ER PO ONE (09:31)
[2023-08-29] MEDS: Potassium Chlor 20 meq TAB.ER PO ONE ×2 (09:54→14:08)
[2023-08-29] MEDS: Calcium Carb (TUMS) 500 mg CHEW TAB PO ONE (23:55)
[2023-08-30 08:44] LABS: ABS Basophils 0.1 10^3/uL (0.0-0.1); ABS Eosinophils 0.1 10^3/uL (0.0-0.5); ABS Lymphocytes 0.5 10^3/uL (1.0-4.8); ABS Monocytes 0.7 10^3/uL (0.0-0.9); ABS Neutrophils 5.3 10^3/uL (1.5-7.6); Eosinophil % 1.3 %; Hematocrit 23.7 % (35-45); Hemoglobin 8.2 g/dL (11.5-14.3); Lymphocyte % 8.1 %; Mean Corpuscular Hemoglobin 36.4 pg (27-33); Mean Corpuscular Hgb Conc 34.6 g/dL (31-36); Mean Corpuscular Volume 105.3 fL (80-97); Mean Platelet Volume 7.9 fL (7.5-11.2); Nucleated Red Blood Cells % 0.1 %/100WBC (0.0-0.8); Platelet Count 41 10^3/uL (150-450); Red Blood Count 2.26 10^6/uL (3.63-4.92); Red Cell Distribution Width 18.5 % (12-17); White Blood Count 6.7 10^3/uL (3.8-11.8)
[2023-08-30 08:56] LABS: INR 3.25 (0.83-1.13)
[2023-08-30 09:14] LABS: Calcium 9.7 mg/dL (8.6-10.3); Creatinine, Serum 1.96 mg/dL (0.51-0.95); Potassium 3.4 mmol/L (3.5-5.0); eGFR CKD-EPI 28.4 (>60)
[2023-08-30 09:20] LABS: Albumin/Globulin Ratio 6.3 (1-3); Globulin 0.8 g/dL (2-4); Total Bilirubin 17.1 mg/dL (0.2-1.0); Total Protein 5.8 g/dL (6.4-8.9)
[2023-08-30 12:45] LABS: Protime (Maddrey) 34.7 seconds (9.5-12.8)
[2023-08-30] MEDS: Bumetanide IV 0.25 MG/ML 4 ml VIAL (1 mg) IV SLOW PU SCH (13:07)
[2023-08-30 13:34] LABS: Total Bilirubin 18.6 mg/dL (0.2-1.0)
[2023-08-31 06:21] LABS: Calcium 10.2 mg/dL (8.6-10.3); Creatinine, Serum 2.13 mg/dL (0.51-0.95); Hematocrit 22.4 % (35-45); Hemoglobin 7.9 g/dL (11.5-14.3); Mean Corpuscular Hemoglobin 37.3 pg (27-33); Mean Corpuscular Hgb Conc 35.2 g/dL (31-36); Mean Corpuscular Volume 106.1 fL (80-97); Mean Platelet Volume 8.1 fL (7.5-11.2); Platelet Count 35 10^3/uL (150-450); Potassium 3.1 mmol/L (3.5-5.0); Red Blood Count 2.11 10^6/uL (3.63-4.92); Red Cell Distribution Width 18.2 % (12-17); White Blood Count 6.9 10^3/uL (3.8-11.8); eGFR CKD-EPI 25.7 (>60)
[2023-08-31 06:25] LABS: Albumin 5.5 g/dL (3.2-5.2); Albumin/Globulin Ratio 6.9 (1-3); Globulin 0.8 g/dL (2-4); Magnesium 1.8 mg/dL (1.9-2.7); Total Bilirubin 17.1 mg/dL (0.2-1.0); Total Protein 6.3 g/dL (6.4-8.9)
[2023-08-31 06:26] LABS: INR 3.61 (0.83-1.13)
[2023-08-31] MEDS: Potassium Chlor 20 meq TAB.ER PO SCH (08:46)
[2023-08-31] MEDS: Magnesium Sulfate 2 gm BAG 2 GM/50 ML BAG IVPB ONE (08:47)
[2023-08-31] MEDS ORDERED: Potassium Chlor 20 meq TAB.ER PO SCH (09:00)
[2023-08-31] MEDS: KCL 20 MEQ/100 ML IVPREMIX 20 MEQ/100 ML BAG IV ONE (11:41)
[2023-08-31] MEDS: Bumetanide IV 0.25 MG/ML 4 ml VIAL (1 mg) IV SLOW PU SCH (14:27)
[2023-09-01] MEDS: Bumetanide IV 0.25 MG/ML 4 ml VIAL (1 mg) IV SLOW PU SCH (05:15)
[2023-09-01 05:31] LABS: Hemoglobin 8.4 g/dL (11.5-14.3); Mean Corpuscular Hemoglobin 36.9 pg (27-33); Mean Corpuscular Hgb Conc 34.9 g/dL (31-36); Mean Corpuscular Volume 105.7 fL (80-97); Mean Platelet Volume 8.4 fL (7.5-11.2); Platelet Count 33 10^3/uL (150-450); Red Blood Count 2.27 10^6/uL (3.63-4.92); Red Cell Distribution Width 18.2 % (12-17); White Blood Count 7.4 10^3/uL (3.8-11.8)
[2023-09-01 05:39] LABS: INR 3.29 (0.83-1.13)
[2023-09-01 06:01] LABS: Calcium 10.3 mg/dL (8.6-10.3); Creatinine, Serum 2.07 mg/dL (0.51-0.95); Potassium 3.1 mmol/L (3.5-5.0); eGFR CKD-EPI 26.6 (>60)
[2023-09-01 06:09] LABS: Albumin 4.9 g/dL (3.2-5.2); Globulin 0.7 g/dL (2-4); Total Protein 5.6 g/dL (6.4-8.9)
[2023-09-01 07:28] LABS: Magnesium 2.1 mg/dL (1.9-2.7)
[2023-09-01] MEDS: KCL 20 MEQ/100 ML IVPREMIX 20 MEQ/100 ML BAG IV SCH (08:07)
[2023-09-01] MEDS: Potassium Chlor 20 meq TAB.ER PO SCH (08:10)
[2023-09-02 06:16] LABS: INR 3.24 (0.83-1.13)
[2023-09-02 06:23] LABS: Hematocrit 23.7 % (35-45); Hemoglobin 8.3 g/dL (11.5-14.3); Mean Corpuscular Hemoglobin 37.2 pg (27-33); Mean Corpuscular Hgb Conc 35.3 g/dL (31-36); Mean Corpuscular Volume 105.5 fL (80-97); Mean Platelet Volume 8.7 fL (7.5-11.2); Platelet Count 33 10^3/uL (150-450); Red Blood Count 2.24 10^6/uL (3.63-4.92); Red Cell Distribution Width 17.7 % (12-17); White Blood Count 6.1 10^3/uL (3.8-11.8)
[2023-09-02 06:24] LABS: Calcium 10.1 mg/dL (8.6-10.3); Creatinine, Serum 2.2 mg/dL (0.51-0.95); Potassium 3.9 mmol/L (3.5-5.0); eGFR CKD-EPI 24.7 (>60)
[2023-09-02 06:27] LABS: Albumin 4.6 g/dL (3.2-5.2); Albumin/Globulin Ratio 5.1 (1-3); Globulin 0.9 g/dL (2-4); Magnesium 1.8 mg/dL (1.9-2.7); Total Bilirubin 21.5 mg/dL (0.2-1.0); Total Protein 5.5 g/dL (6.4-8.9)
[2023-09-02] MEDS: Magnesium Sulfate 2 gm BAG 2 GM/50 ML BAG IVPB ONE (08:38)
[2023-09-02 10:21] VITALS: BP 110/65
== END 2023-09-02 12:51 | disposition home or self-care (01) | DRG 280 ==
LOC: ED 09:21 → SUATTDRO 17:03 → EDHOLD 17:03 → MED 20:23
PROVIDERS: ADMIT Hospitalist; ATTEND Internal Medicine
PROC: O.GIEGD (2023-08-25 15:50)

== ENCOUNTER 2023-09-08 21:06 | Inpatient (IN) ==
[2023-09-08 23:42] LABS: INR 3.36 (0.83-1.13)
[2023-09-08 23:54] LABS: ABS Basophils 0.1 10^3/uL (0.0-0.1); ABS Eosinophils 0.1 10^3/uL (0.0-0.5); ABS Lymphocytes 0.6 10^3/uL (1.0-4.8); ABS Monocytes 0.8 10^3/uL (0.0-0.9); Eosinophil % 2.2 %; Hematocrit 25.1 % (35-45); Hemoglobin 8.9 g/dL (11.5-14.3); Lymphocyte % 10.6 %; Mean Corpuscular Hemoglobin 37.7 pg (27-33); Mean Corpuscular Hgb Conc 35.4 g/dL (31-36); Mean Corpuscular Volume 106.4 fL (80-97); Nucleated Red Blood Cells % 0.1 %/100WBC (0.0-0.8); Red Blood Count 2.36 10^6/uL (3.63-4.92); Red Cell Distribution Width 17.2 % (12-17); White Blood Count 5.6 10^3/uL (3.8-11.8)
[2023-09-08 23:58] LABS: Mean Platelet Volume 9.6 fL (7.5-11.2); Platelet Count 61 10^3/uL (150-450)
[2023-09-09] MEDS: NS 0.9% 1000 ml BAG 1,000 ML IV ONE (00:12)
[2023-09-09 00:23] LABS: C Reactive Protein 82.61 mg/L (<8.01); Creatinine, Serum 4.06 mg/dL (0.51-0.95); Potassium 3.4 mmol/L (3.5-5.0); eGFR CKD-EPI 11.9 (>60)
[2023-09-09 00:52] LABS: Albumin 3.9 g/dL (3.2-5.2); Albumin/Globulin Ratio 3.5 (1-3); Globulin 1.1 g/dL (2-4); Total Bilirubin 30.1 mg/dL (0.2-1.0)
[2023-09-09] MEDS ORDERED: Propofol 10 mg/ml 100 ML BTL 1,000 MG/100 ML BTL ONE (03:27)
[2023-09-09] MEDS ORDERED: Rocuronium 50 mg VIAL 10 mg/ml 5 ml VIAL (50 mg) ONE (03:32)
[2023-09-09] MEDS: Rocuronium 50 mg VIAL 10 mg/ml 5 ml VIAL (50 mg) IV ONE (03:38)
[2023-09-09] MEDS: Ketamine HCL 50 mg/ml 10 ml VIAL (500 MG) IV ONE (03:38)
[2023-09-09] MEDS ORDERED: Norepinephrine 4 MG/250mL D5W 4,000 MCG/250 ML BAG IV ONE (03:41)
[2023-09-09] MEDS: Ondansetron 4 mg VIAL 2 MG/ML 2 ml VIAL IV ONE (03:50)
[2023-09-09 03:51] LABS: Body Fluid Appearance Clear; Body Fluid Color Yellow; Body Fluid Source Peritonial Fluid
[2023-09-09] MEDS ORDERED: fentaNYL 100 mcg/2 ml 50 MCG/ML VIAL ONE (04:23)
[2023-09-09] MEDS: fentaNYL 100 mcg/2 ml 50 MCG/ML VIAL IV SLOW PU PRN (04:25)
[2023-09-09] MEDS: Pantoprazole VIAL 40 MG VIAL IV ONE (04:50)
[2023-09-09] MEDS: cefTRIAXone 2 gm/50 mL D5W 2 GM/50 ML BAG IV ONE (04:50)
[2023-09-09] MEDS: Octreotide Acetate 50 MCG in NS 0.9% 50 ML 50 ML IV ONE (04:53)
[2023-09-09] MEDS: Pantoprazole 80 mg in NS BAG 80 MG/250 ML BAG IV ONE (05:10)
[2023-09-09] MEDS: Norepinephrine 4 MG/250mL D5W 4,000 MCG/250 ML BAG IV SCH (05:13)
[2023-09-09 05:38] LABS: Body Fluid Mono 47 %; Body Fluid Other Cells 74; Body Fluid Total Cells Counted 200
[2023-09-09] MEDS: Propofol 10 mg/ml 100 ML BTL 1,000 MG/100 ML BTL IV SCH (05:39)
[2023-09-09 05:50] LABS: Urine Appearance Turbid; Urine Bilirubin 1+ (Negative); Urine Blood Negative (Negative); Urine Color Dark-Yellow; Urine Glucose Negative (Negative); Urine Ketones Negative (Negative); Urine Nitrite Negative (Negative); Urine Protein Trace (Negative); Urine Specific Gravity 1.013 (1.002-1.030); Urine Urobilinogen Negative (Negative)
[2023-09-09 06:04] LABS: Body Fluid Total Nucleated 57 /mcL
[2023-09-09] MEDS ORDERED: Thiamine 100 MG/ML 2 ml VIAL (200 mg) ONE (06:49)
[2023-09-09] MEDS: Folic Acid IV 1 MG in NS 0.9% 50 ML 50 ML IV ONE ×2 (06:53→09:19)
[2023-09-09] MEDS: Chlorhexidine MOUTHWASH 0.12% 15 ML UDC TOPICAL SCH (08:35)
[2023-09-09] MEDS: Albumin Human 25% 25 GM/100 ML BTL IV SCH (08:56)
[2023-09-09] MEDS: Thiamine 100 MG/ML 2 ml VIAL 100 MG in NS 0.9% 50 ML 50 ML IV SCH (10:03)
[2023-09-09 10:27] LABS: Hematocrit 25.2 % (35-45); Hemoglobin 8.8 g/dL (11.5-14.3); Mean Corpuscular Volume 102.7 fL (80-97); Platelet Count 91 10^3/uL (150-450); Red Blood Count 2.45 10^6/uL (3.63-4.92); Red Cell Distribution Width 18.5 % (12-17)
[2023-09-09 10:57] LABS: INR 3.75 (0.83-1.13)
[2023-09-09] MEDS: KCL 10 MEQ/50 ML IVPREMIX 10 MEQ/50 ML BAG IV SCH (11:05)
[2023-09-09 11:07] LABS: Calcium 9.3 mg/dL (8.6-10.3); Creatinine, Serum 3.89 mg/dL (0.51-0.95); Potassium 3.7 mmol/L (3.5-5.0); eGFR CKD-EPI 12.5 (>60)
[2023-09-09 11:09] LABS: Albumin/Globulin Ratio 4.4 (1-3); Globulin 0.9 g/dL (2-4); Total Bilirubin 25.8 mg/dL (0.2-1.0); Total Protein 4.9 g/dL (6.4-8.9)
[2023-09-09 11:29] LABS: Indirect Bilirubin 7.8 mg/dL (0.3-1.0)
[2023-09-09 12:21] LABS: Magnesium 1.8 mg/dL (1.9-2.7); Phosphorus 3.4 mg/dL (2.5-5.0)
[2023-09-09] MEDS: Octreotide Acetate 500 MCG in NS 0.9% 100 ml BAG 100 ML IV SCH (13:02)
[2023-09-09] MEDS: Magnesium Sulfate IV 1GM/100ML 1 GM/100 ML BAG IV ONE (15:15)
[2023-09-09 15:53] LABS: Hematocrit 22.5 % (35-45); Hemoglobin 8.1 g/dL (11.5-14.3); Mean Corpuscular Hemoglobin 36.8 pg (27-33); Mean Corpuscular Volume 102.1 fL (80-97); White Blood Count 7.3 10^3/uL (3.8-11.8)
[2023-09-09] MEDS ORDERED: Pantoprazole VIAL 40 MG VIAL IV SCH (16:00)
[2023-09-09 16:20] LABS: ABS Basophils 0.1 10^3/uL (0.0-0.1); ABS Eosinophils 0.2 10^3/uL (0.0-0.5); ABS Neutrophils 5.1 10^3/uL (1.5-7.6); ABS Nucleated RBC 0.01 10^3/ul; Eosinophil % 2.1 %; Lymphocyte % 13.9 %; Mean Platelet Volume 9.5 fL (7.5-11.2); Nucleated Red Blood Cells % 0.1 %/100WBC (0.0-0.8); Platelet Count 63 10^3/uL (150-450)
[2023-09-09] MEDS: Pantoprazole 80 mg in NS BAG 80 MG/250 ML BAG IV SCH (18:38)
[2023-09-10] MEDS: Albumin Human 25% 12.5 GM/50 ML BTL IV SCH (00:27)
[2023-09-10] MEDS: cefTRIAXone 1 gm/50 mL D5W 1 GM/50 ML BAG IV SCH (05:38)
[2023-09-10 06:46] LABS: Hematocrit 23.1 % (35-45); Hemoglobin 8.3 g/dL (11.5-14.3); Mean Corpuscular Hemoglobin 36.8 pg (27-33); Mean Corpuscular Volume 102.1 fL (80-97); Mean Platelet Volume 9.5 fL (7.5-11.2); Platelet Count 78 10^3/uL (150-450); Red Blood Count 2.26 10^6/uL (3.63-4.92); Red Cell Distribution Width 19.6 % (12-17); White Blood Count 9.7 10^3/uL (3.8-11.8)
[2023-09-10 07:14] LABS: Calcium 9.7 mg/dL (8.6-10.3); Creatinine, Serum 4.41 mg/dL (0.51-0.95); Potassium 3.4 mmol/L (3.5-5.0); eGFR CKD-EPI 10.7 (>60)
[2023-09-10 07:34] LABS: Albumin 4.6 g/dL (3.2-5.2); Albumin/Globulin Ratio 5.1 (1-3); Globulin 0.9 g/dL (2-4); Total Bilirubin 24.8 mg/dL (0.2-1.0); Total Protein 5.5 g/dL (6.4-8.9)
[2023-09-10] MEDS ORDERED: Albumin Human 25% 25 GM/100 ML BTL IV SCH (08:00)
[2023-09-10] MEDS: KCL 20 MEQ/100 ML IVPREMIX 20 MEQ/100 ML BAG IV SCH (08:22)
[2023-09-10 08:41] LABS: ABS Basophils 0.1 10^3/uL (0.0-0.1); ABS Eosinophils 0.3 10^3/uL (0.0-0.5); ABS Lymphocytes 1.2 10^3/uL (1.0-4.8); ABS Monocytes 1.2 10^3/uL (0.0-0.9); ABS Neutrophils 6.9 10^3/uL (1.5-7.6); ABS Nucleated RBC 0.01 10^3/ul; Eosinophil % 3.1 %; Lymphocyte % 12.6 %; Nucleated Red Blood Cells % 0.1 %/100WBC (0.0-0.8)
[2023-09-10 08:44] LABS: RBC Morphology Normal (Normal)
[2023-09-10] MEDS: Bumetanide IV 0.25 MG/ML 4 ml VIAL (1 mg) IV SLOW PU ONE (10:31)
[2023-09-10] MEDS: Thiamine 100 MG/ML 2 ml VIAL 100 MG in NS 0.9% 50 ML 50 ML IV SCH (10:45)
[2023-09-10] MEDS: KCL 20 MEQ/100 ML IVPREMIX 20 MEQ/100 ML BAG IV ONE (13:40)
[2023-09-10] MEDS: HYDROmorphone PCA 20 MG/20 ML PCA.SYRING PCA SCH (14:32)
[2023-09-10] MEDS: Midazolam 2 mg/2 ml VIAL 1 mg/ml 2 ml VIAL (2 mg) IV SLOW PU PRN (14:59)
[2023-09-10] MEDS: HYDROmorphone 1 MG/1 ML SYRINGE IV PRN (14:59)
[2023-09-10] MEDS: Lactulose 300 ML for PR 200 GM/300 ML BTL PR ONE (15:24)
[2023-09-10] MEDS: Scopolamine 1 mg/72hr PATCH TRANSDERM SCH (15:28)
[2023-09-10] MEDS ORDERED: Pantoprazole VIAL 40 MG VIAL IV SCH (16:00)
[2023-09-10] MEDS: Atropine 1% (ORAL/SL) 15 ML BTL SL PRN (20:16)
[2023-09-11 14:01] VITALS: BP 0/0
== END 2023-09-11 22:00 | disposition expired | DRG 253 ==
LOC: ED 21:06 → EDHOLD 09-09 05:07 → ICU 09-09 07:15 → MED 09-11 12:38
PROVIDERS: ADMIT Surgery Surgical Critical Care; ATTEND Student in an Organized Health Care Education/Training Program